=== PATIENT | male | born 1985 | race Caucasian/White ===

== ENCOUNTER 2020-09-22 18:31 | Emergency (ER) | payer OTHER ==
[2020-09-22] MEDS ORDERED: TETANUS/DIPHTHERIA/PERTUSSIS 0.5 ML SYRINGE IM ONE (18:41)
[2020-09-22] MEDS ORDERED: BUFFERED LIDOCAINE 10 ML SYRINGE SUBQ STA (18:41)
--- NOTE | 2020-09-22 18:51 | ED Physician Documentation ---
History of Present Illness - Stated complaint Stated Complaint: RT HAND LAC - Chief complaint Chief Complaint: Laceration - Additonal information Additional information: 35 year old male here with a laceration to the palm ulnar side of right hand sustained when he fell onto glass while breaking down a shed. Pt is right hand dominate. [employer], utd tetanus Review of Systems Constitutional: reports: Reviewed and negative Eyes: reports: Reviewed and negative Ears: reports: Reviewed and negative Nose: reports: Reviewed and negative Throat: reports: Reviewed and negative Skin: reports: Laceration (s) (palm left hand/wrist) PD PAST MEDICAL HISTORY - Present Medications Home Medications: Ambulatory Orders Medication Instructions Recorded Confirmed Dextroamphetamine/Amphetamine 10 mg PO DAILY 09/22/20 09/22/20 [Adderall 10 mg Tablet] Dextroamphetamine/Amphetamine 30 mg PO DAILY 09/22/20 09/22/20 [Adderall 30 mg Tablet] - Allergies Allergies/Adverse Reactions: Allergies Allergy/AdvReac Type Severity Reaction Status Date / Time No Known Drug Allergies Allergy Verified 09/22/20 18:36 PD ED PE EXPANDED - General General: Alert, No acute distress - Extremities Extremities: Left wrist (3 cm laceration palmar side right hand base palm ulnar side. distal CMST preserved. Normal flexion, extenion wrist. Normal gasp of hand) Results - Vitals Vitals: Vital Signs - 24 hr 09/22/20 18:37 Temperature 36.6 C Heart Rate 98 Respiratory 18 Rate Blood Pressure 134/87 H O2 Saturation 100 Oxygen O2 Source Room air Procedures - Laceration (location) right hand/palm Length in cm: 3 Wound type: Linear, Into subcut fat Neurovascular status: Sensory intact, Motor intact, Vascular intact Tendon involvement: Tendon intact Anesthesia: LET Wound preparation: Chlorhexadine, Irrigated copiously NS Skin layer closure: Nylon, Size #-0 - enter number (4), Sutures - enter # (6) Other: Patient tolerated well, No complications, Neurovascular intact, Tetanus U TD PD MEDICAL DECISION MAKING - ED course Complexity details: re-evaluated patient, d/w patient ED course: 35-year-old male presents emergency department with a 3 cm laceration on the palmar side of his right hand ulnar side. This was sustained when he was tearing apart an old shed. Wound was easily closed with 6 sutures. Tetanus is up-to-date. Routine wound care emergent return precautions were discussed. Departure - Departure Disposition: 01 Home, Self Care Clinical Impression: Laceration of palm Qualifiers: Encounter type: initial encounter Laterality: right Qualified Code(s): S61.411A - Laceration without foreign body of right hand, initial encounter Record reviewed to determine appropriate education?: Yes Instructions: ED Laceration Hand Comments: Your sutures should be removed in 8 to 10 days. In 24 hours you may remove the dressing wash gently with warm soap and water, apply any antibiotic ointment and a simple bandage. Your tetanus is up-to-date. Please attempt to keep your wound clean and dry. Do not submerge it in dirty dishwater or bath water. Return to the emergency department if you have any concerns of infection such as redness, fevers milky drainage increased pain.
--- NOTE | 2020-09-22 19:16 | XRAY Report ---
PROCEDURE: Wrist 2 View RT INDICATIONS: laceration; eval for FB TECHNIQUE: 2 views of the wrist were acquired. COMPARISON: None FINDINGS: Bones: No fractures or dislocations. No suspicious bony lesions. Soft tissues: No suspicious soft tissue calcifications. No soft tissue gas. No radiodense foreign b odies. IMPRESSION: No fracture. No osseous lesion. If there are persistent symptoms or continued clinical concern for pa thology, then repeat plain film radiographs (7-10 days) or advanced imaging (CT, MR, bone scan) shoul d be considered for further evaluation. No radiodense foreign body. Reviewed by: Pamela Nicholson MD, PhD on 09/22/2020 7:15 PM PDT Approved by: Pamela Nicholson MD, PhD on 09/22/2020 7:15 PM PDT Station ID: [id number]
[2020-09-22] MEDS ORDERED: BACITRACIN ZINC OINT 1 PACKET TOP STA (19:19)
[2020-09-22 19:35] VITALS: BP 132/81
== END 2020-09-22 19:33 | disposition home or self-care (01) ==
LOC: ED 18:31
DX: S61.411A Laceration without foreign body of right hand, initial encounter (principal); W01.110A Fall on same level from slipping, tripping and stumbling with subsequent striking against sharp glass, initial encounter; Y93.H3 Activity, building and construction; Y92.139 Unspecified place military base as the place of occurrence of the external cause; Y99.1 Military activity
CPT/HCPCS: 12002; 99282; 99283

== ENCOUNTER 2022-11-06 08:41 | Emergency (ER) | payer OTHER ==
[2022-11-06] MEDS ORDERED: SODIUM CHLORIDE 0.9% 1,000 ML IV STA (08:53)
[2022-11-06] MEDS ORDERED: ONDANSETRON 4 MG/2 ML VIAL IVP STA (08:53)
--- OUTSIDE RECORDS SUMMARY | 2022-11-06 09:14 | EXTERNAL MEDICAL SUMMARY RPT | Continuity of Care Document ---
Author Name Unknown Address [address] [place] [address] Phone Organization [place] Address [address] [place] [address] Phone Care Team Providers Care Home Care Consultant Name Role Phone Vanesa Alexander Unavailable Unavailable Medications date description facility 2022-10-16 00:00 Ondansetron [facility] Problems date description facility 2022-10-16 00:00 Atypical chest pain [facility] 2022-10-16 00:00 Nausea and vomiting [facility] 2022-10-16 00:00 Elevated liver enzymes [facility] Procedures date description facility 2022-10-15 00:00 X-ray of chest, single [facility] Results/Labs test date author facility value unit interpretation Result panel 1 (unknown) (no date) (unknown) [facility] (no value) (units unknown) (unknown) Result panel 2 (unknown) (no date) (unknown) [facility] (no value) (units unknown) (unknown) Result panel 3 (unknown) (no date) (unknown) [facility] (no value) (units unknown) (unknown) Result panel 4 (unknown) (no date) (unknown) [facility] (no value) (units unknown) (unknown) Result panel 5 (unknown) (no date) (unknown) [facility] (no value) (units unknown) (unknown) Result panel 6 (unknown) (no date) (unknown) [facility] (no value) (units unknown) (unknown) Result panel 7 (unknown) (no date) (unknown) [facility] (no value) (units unknown) (unknown) Result panel 8 (unknown) (no date) (unknown) [facility] (no value) (units unknown) (unknown) Result panel 9 (unknown) (no date) (unknown) [facility] (no value) (units unknown) (unknown) Result panel 10 (unknown) (no date) (unknown) [facility] (no value) (units unknown) (unknown) Result panel 11 (unknown) (no date) (unknown) [facility] (no value) (units unknown) (unknown) Result panel 12 (unknown) (no date) (unknown) [facility] (no value) (units unknown) (unknown) Result panel 13 (unknown) (no date) (unknown) [facility] (no value) (units unknown) (unknown) Result panel 14 (unknown) (no date) (unknown) [facility] (no value) (units unknown) (unknown) Result panel 15 (unknown) (no date) (unknown) [facility] (no value) (units unknown) (unknown) Result panel 16 (unknown) (no date) (unknown) [facility] (no value) (units unknown) (unknown) Result panel 17 (unknown) (no date) (unknown) [facility] (no value) (units unknown) (unknown) Result panel 18 (unknown) (no date) (unknown) [facility] (no value) (units unknown) (unknown) Result panel 19 (unknown) (no date) (unknown) [facility] (no value) (units unknown) (unknown) Result panel 20 (unknown) (no date) (unknown) [facility] (no value) (units unknown) (unknown) Result panel 21 (unknown) (no date) (unknown) [facility] (no value) (units unknown) (unknown) Result panel 22 (unknown) (no date) (unknown) [facility] (no value) (units unknown) (unknown) Result panel 23 (unknown) (no date) (unknown) [facility] (no value) (units unknown) (unknown) Result panel 24 (unknown) (no date) (unknown) [facility] (no value) (units unknown) (unknown) Result panel 25 (unknown) (no date) (unknown) [facility] (no value) (units unknown) (unknown) Result panel 26 (unknown) (no date) (unknown) [facility] (no value) (units unknown) (unknown) Result panel 27 (unknown) (no date) (unknown) [facility] (no value) (units unknown) (unknown) Result panel 28 (unknown) (no date) (unknown) [facility] (no value) (units unknown) (unknown) Result panel 29 (unknown) (no date) (unknown) [facility] (no value) (units unknown) (unknown) Result panel 30 (unknown) (no date) (unknown) [facility] (no value) (units unknown) (unknown) Result panel 31 (unknown) (no date) (unknown) [facility] (no value) (units unknown) (unknown) Result panel 32 (unknown) (no date) (unknown) [facility] (no value) (units unknown) (unknown) Result panel 33 (unknown) (no date) (unknown) [facility] (no value) (units unknown) (unknown) Result panel 34 (unknown) (no date) (unknown) [facility] (no value) (units unknown) (unknown) Result panel 35 (unknown) (no date) (unknown) [facility] (no value) (units unknown) (unknown) Result panel 36 (unknown) (no date) (unknown) [facility] (no value) (units unknown) (unknown) Result panel 37 (unknown) (no date) (unknown) (unknown) (no value) (units unknown) (unknown) (unknown) (no date) (unknown) (unknown) #: [id number] (units unknown) (unknown) (unknown) (no date) (unknown) (unknown) 10/15/22 (units unknown) (unknown) (unknown) (no date) (unknown) (unknown) 1. No acute cardiopulmonary disease. (units unknown) (unknown) (unknown) (no date) (unknown) (unknown) [address] [place] [address] (units unknown) (unknown) (unknown) (no date) (unknown) (unknown) Accession Number: [id number] (units unknown) (unknown) (unknown) (no date) (unknown) (unknown) Age/Sex: 37 / M Date of Service: (units unknown) (unknown) (unknown) (no date) (unknown) (unknown) [place] [address] (units unknown) (unknown) (unknown) (no date) (unknown) (unknown) Approved by: Tavon Becker M.D. on 10/16/2022 at 0:14 (units unknown) (unknown) (unknown) (no date) (unknown) (unknown) Bones and chest wall: No suspicious bony lesions. Overlying soft tissues (units unknown) (unknown) (unknown) (no date) (unknown) (unknown) COMPARISON: None. (units unknown) (unknown) (unknown) (no date) (unknown) (unknown) : 1985 Acct:[id number] (units unknown) (unknown) (unknown) (no date) (unknown) (unknown) Dictated by: Tavon Becker M.D. on 10/16/2022 at 0:14 (units unknown) (unknown) (unknown) (no date) (unknown) (unknown) FINDINGS: (units unknown) (unknown) (unknown) (no date) (unknown) (unknown) IMPRESSION: (units unknown) (unknown) (unknown) (no date) (unknown) (unknown) INDICATIONS: chest pain (units unknown) (unknown) (unknown) (no date) (unknown) (unknown) [facility] (units unknown) (unknown) (unknown) (no date) (unknown) (unknown) Loc: ED (units unknown) (unknown) (unknown) (no date) (unknown) (unknown) Lungs and pleura: Lungs are clear. No pleural effusions or pneumothorax. (units unknown) (unknown) (unknown) (no date) (unknown) (unknown) Mediastinum: Mediastinal contours appear normal. Heart size is normal. (units unknown) (unknown) (unknown) (no date) (unknown) (unknown) Ordering Provider: Vanesa Alexander MD (units unknown) (unknown) (unknown) (no date) (unknown) (unknown) PROCEDURE: XR CHEST 1V (units unknown) (unknown) (unknown) (no date) (unknown) (unknown) Patient: Shamar Briones MR (units unknown) (unknown) (unknown) (no date) (unknown) (unknown) Procedure: XR chest 1V (units unknown) (unknown) (unknown) (no date) (unknown) (unknown) Signed (units unknown) (unknown) (unknown) (no date) (unknown) (unknown) Surgical changes and devices: None. (units unknown) (unknown) (unknown) (no date) (unknown) (unknown) TECHNIQUE: One view of the chest was acquired. (units unknown) (unknown) (unknown) (no date) (unknown) (unknown) XRay Report (units unknown) (unknown) (unknown) (no date) (unknown) (unknown) appear (units unknown) (unknown) (unknown) (no date) (unknown) (unknown) unremarkable. (units unknown) (unknown) Result panel 38 (unknown) (no date) (unknown) (unknown) 0 /ul (unknown) (unknown) (no date) (unknown) (unknown) 0.7 % (unknown) (unknown) (no date) (unknown) (unknown) 100 /ul (unknown) (unknown) (no date) (unknown) (unknown) 1000 /ul (unknown) (unknown) (no date) (unknown) (unknown) 14.0 % (unknown) (unknown) (no date) (unknown) (unknown) 15.3 % (unknown) (unknown) (no date) (unknown) (unknown) 16.8 g/dl (unknown) (unknown) (no date) (unknown) (unknown) 2.2 % (unknown) (unknown) (no date) (unknown) (unknown) 272 x10 3/ul (unknown) (unknown) (no date) (unknown) (unknown) 31.9 pg (unknown) (unknown) (no date) (unknown) (unknown) 35.1 % (unknown) (unknown) (no date) (unknown) (unknown) 47.7 % (unknown) (unknown) (no date) (unknown) (unknown) 4900 /ul (unknown) (unknown) (no date) (unknown) (unknown) 5.26 x10 6/ul (unknown) (unknown) (no date) (unknown) (unknown) 6.7 x10 3/ul (unknown) (unknown) (no date) (unknown) (unknown) 600 /ul (unknown) (unknown) (no date) (unknown) (unknown) 73.2 % (unknown) (unknown) (no date) (unknown) (unknown) 8.6 % (unknown) (unknown) (no date) (unknown) (unknown) 90.7 fl (unknown) Result panel 39 (unknown) (no date) (unknown) (unknown) 142 u/l (unknown) Result panel 40 (unknown) (no date) (unknown) (unknown) 1.0 (units unknown) (unknown) (unknown) (no date) (unknown) (unknown) 11.1 seconds (unknown) (unknown) (no date) (unknown) (unknown) 30 seconds (unknown) (unknown) (no date) (unknown) (unknown) 30 seconds (unknown) Result panel 41 (unknown) (no date) (unknown) (unknown) > 60 ml/min (unknown) (unknown) (no date) (unknown) (unknown) > 60 ml/min (unknown) (unknown) (no date) (unknown) (unknown) 0.6 mg/dl (unknown) (unknown) (no date) (unknown) (unknown) 1.05 mg/dl (unknown) (unknown) (no date) (unknown) (unknown) 1.5 (units unknown) (unknown) (unknown) (no date) (unknown) (unknown) 10 mg/dl (unknown) (unknown) (no date) (unknown) (unknown) 100 mmol/l (unknown) (unknown) (no date) (unknown) (unknown) 117 iu/l (unknown) (unknown) (no date) (unknown) (unknown) 129 mg/dl (unknown) (unknown) (no date) (unknown) (unknown) 129 mg/dl (unknown) (unknown) (no date) (unknown) (unknown) 138 mmol/l (unknown) (unknown) (no date) (unknown) (unknown) 146 iu/l (unknown) (unknown) (no date) (unknown) (unknown) 2.1 mg/dl (unknown) (unknown) (no date) (unknown) (unknown) 23 mmol/l (unknown) (unknown) (no date) (unknown) (unknown) 271 u/l (unknown) (unknown) (no date) (unknown) (unknown) 3.6 g/dl (unknown) (unknown) (no date) (unknown) (unknown) 3.9 mmol/l (unknown) (unknown) (no date) (unknown) (unknown) 5.3 g/dl (unknown) (unknown) (no date) (unknown) (unknown) 60 u/l (unknown) (unknown) (no date) (unknown) (unknown) 8.9 g/dl (unknown) (unknown) (no date) (unknown) (unknown) 9.4 mg/dl (unknown) (unknown) (no date) (unknown) (unknown) 9.5 (units unknown) (unknown) Result panel 42 (unknown) (no date) (unknown) (unknown) > 60 ml/min (unknown) (unknown) (no date) (unknown) (unknown) > 60 ml/min (unknown) (unknown) (no date) (unknown) (unknown) < 0.012 ng/ml (unknown) (unknown) (no date) (unknown) (unknown) < 0.012 ng/ml (unknown) (unknown) (no date) (unknown) (unknown) * (units unknown) (unknown) (unknown) (no date) (unknown) (unknown) * (units unknown) (unknown) (unknown) (no date) (unknown) (unknown) 0-1/HPF (units unknown) (unknown) (unknown) (no date) (unknown) (unknown) 0.6 mg/dl (unknown) (unknown) (no date) (unknown) (unknown) 1.05 mg/dl (unknown) (unknown) (no date) (unknown) (unknown) 1.5 (units unknown) (unknown) (unknown) (no date) (unknown) (unknown) 10 mg/dl (unknown) (unknown) (no date) (unknown) (unknown) 100 mmol/l (unknown) (unknown) (no date) (unknown) (unknown) 117 iu/l (unknown) (unknown) (no date) (unknown) (unknown) 129 mg/dl (unknown) (unknown) (no date) (unknown) (unknown) 129 mg/dl (unknown) (unknown) (no date) (unknown) (unknown) 138 mmol/l (unknown) (unknown) (no date) (unknown) (unknown) 146 iu/l (unknown) (unknown) (no date) (unknown) (unknown) 2.1 mg/dl (unknown) (unknown) (no date) (unknown) (unknown) 23 mmol/l (unknown) (unknown) (no date) (unknown) (unknown) 271 u/l (unknown) (unknown) (no date) (unknown) (unknown) 3.6 g/dl (unknown) (unknown) (no date) (unknown) (unknown) 3.9 mmol/l (unknown) (unknown) (no date) (unknown) (unknown) 30-100/LPF (units unknown) (unknown) (unknown) (no date) (unknown) (unknown) 5.3 g/dl (unknown) (unknown) (no date) (unknown) (unknown) 60 u/l (unknown) (unknown) (no date) (unknown) (unknown) 8.9 g/dl (unknown) (unknown) (no date) (unknown) (unknown) 9.4 mg/dl (unknown) (unknown) (no date) (unknown) (unknown) 9.5 (units unknown) (unknown) (unknown) (no date) (unknown) (unknown) None Seen (units unknown) (unknown) (unknown) (no date) (unknown) (unknown) None Seen (units unknown) (unknown) (unknown) (no date) (unknown) (unknown) None Seen (units unknown) (unknown) Result panel 43 (unknown) (no date) (unknown) (unknown) > 60 ml/min (unknown) (unknown) (no date) (unknown) (unknown) > 60 ml/min (unknown) (unknown) (no date) (unknown) (unknown) < 0.012 ng/ml (unknown) (unknown) (no date) (unknown) (unknown) < 0.012 ng/ml (unknown) (unknown) (no date) (unknown) (unknown) 0.3 % (unknown) (unknown) (no date) (unknown) (unknown) 0.6 mg/dl (unknown) (unknown) (no date) (unknown) (unknown) 0.81 ng/ml (unknown) (unknown) (no date) (unknown) (unknown) 1.05 mg/dl (unknown) (unknown) (no date) (unknown) (unknown) 1.5 (units unknown) (unknown) (unknown) (no date) (unknown) (unknown) 10 mg/dl (unknown) (unknown) (no date) (unknown) (unknown) 100 mmol/l (unknown) (unknown) (no date) (unknown) (unknown) 117 iu/l (unknown) (unknown) (no date) (unknown) (unknown) 129 mg/dl (unknown) (unknown) (no date) (unknown) (unknown) 129 mg/dl (unknown) (unknown) (no date) (unknown) (unknown) 138 mmol/l (unknown) (unknown) (no date) (unknown) (unknown) 146 iu/l (unknown) (unknown) (no date) (unknown) (unknown) 2.1 mg/dl (unknown) (unknown) (no date) (unknown) (unknown) 23 mmol/l (unknown) (unknown) (no date) (unknown) (unknown) 271 u/l (unknown) (unknown) (no date) (unknown) (unknown) 3.6 g/dl (unknown) (unknown) (no date) (unknown) (unknown) 3.9 mmol/l (unknown) (unknown) (no date) (unknown) (unknown) 5.3 g/dl (unknown) (unknown) (no date) (unknown) (unknown) 60 u/l (unknown) (unknown) (no date) (unknown) (unknown) 8.9 g/dl (unknown) (unknown) (no date) (unknown) (unknown) 9.4 mg/dl (unknown) (unknown) (no date) (unknown) (unknown) 9.5 (units unknown) (unknown) Result panel 44 (unknown) (no date) (unknown) (unknown) (no value) (units unknown) (unknown) (unknown) (no date) (unknown) (unknown) 00:00 10/16/22 (units unknown) (unknown) (unknown) (no date) (unknown) (unknown) 00:30 10/16/22 (units unknown) (unknown) (unknown) (no date) (unknown) (unknown) 00:30 (units unknown) (unknown) (unknown) (no date) (unknown) (unknown) 01:00 10/16/22 (units unknown) (unknown) (unknown) (no date) (unknown) (unknown) 01:00 (units unknown) (unknown) (unknown) (no date) (unknown) (unknown) 01:10/16/22 (units unknown) (unknown) (unknown) (no date) (unknown) (unknown) 02:00 10/16/22 (units unknown) (unknown) (unknown) (no date) (unknown) (unknown) 02:00 (units unknown) (unknown) (unknown) (no date) (unknown) (unknown) 02:10/16/22 (units unknown) (unknown) (unknown) (no date) (unknown) (unknown) 02:30 (units unknown) (unknown) (unknown) (no date) (unknown) (unknown) 03:00 10/16/22 (units unknown) (unknown) (unknown) (no date) (unknown) (unknown) 03:00 (units unknown) (unknown) (unknown) (no date) (unknown) (unknown) 10/15/22 10/15/22 10/15/22 Range/Units (units unknown) (unknown) (unknown) (no date) (unknown) (unknown) 10/15/22 10/15/22 Range/Units (units unknown) (unknown) (unknown) (no date) (unknown) (unknown) 10/15/22 22:52 (units unknown) (unknown) (unknown) (no date) (unknown) (unknown) 10/15/22 23:00 (units unknown) (unknown) (unknown) (no date) (unknown) (unknown) 10/15/22 (units unknown) (unknown) (unknown) (no date) (unknown) (unknown) 10/16/22 (units unknown) (unknown) (unknown) (no date) (unknown) (unknown) 22:48 10/15/22 (units unknown) (unknown) (unknown) (no date) (unknown) (unknown) 23:00 23:00 23:00 (units unknown) (unknown) (unknown) (no date) (unknown) (unknown) 23:00 23:00 (units unknown) (unknown) (unknown) (no date) (unknown) (unknown) 23:32 10/15/22 (units unknown) (unknown) (unknown) (no date) (unknown) (unknown) 23:33 (units unknown) (unknown) (unknown) (no date) (unknown) (unknown) : [id number] (units unknown) (unknown) (unknown) (no date) (unknown) (unknown) ALT (<50) IU/L (units unknown) (unknown) (unknown) (no date) (unknown) (unknown) ALT 146 H (<50) IU/L (units unknown) (unknown) (unknown) (no date) (unknown) (unknown) APTT (26-36) SECONDS (units unknown) (unknown) (unknown) (no date) (unknown) (unknown) APTT 30 (26-36) SECONDS (units unknown) (unknown) (unknown) (no date) (unknown) (unknown) AST (17-59) IU/L (units unknown) (unknown) (unknown) (no date) (unknown) (unknown) AST 117 H (17-59) IU/L (units unknown) (unknown) (unknown) (no date) (unknown) (unknown) Age/Sex: 37 / M (units unknown) (unknown) (unknown) (no date) (unknown) (unknown) Albumin (3.5-5.0) g/dL (units unknown) (unknown) (unknown) (no date) (unknown) (unknown) Albumin 5.3 H (3.5-5.0) g/dL (units unknown) (unknown) (unknown) (no date) (unknown) (unknown) Albumin/Globulin Ratio (1.0-2.8) (units unknown) (unknown) (unknown) (no date) (unknown) (unknown) Albumin/Globulin Ratio 1.5 (1.0-2.8) (units unknown) (unknown) (unknown) (no date) (unknown) (unknown) Alkaline Phosphatase (38-126) U/L (units unknown) (unknown) (unknown) (no date) (unknown) (unknown) Alkaline Phosphatase 60 (38-126) U/L (units unknown) (unknown) (unknown) (no date) (unknown) (unknown) BUN (9-20) mg/dL (units unknown) (unknown) (unknown) (no date) (unknown) (unknown) BUN 10 (9-20) mg/dL (units unknown) (unknown) (unknown) (no date) (unknown) (unknown) BUN/Creatinine Ratio (6-22) (units unknown) (unknown) (unknown) (no date) (unknown) (unknown) BUN/Creatinine Ratio 9.5 (6-22) (units unknown) (unknown) (unknown) (no date) (unknown) (unknown) Baso # (Auto) (0-100) /uL (units unknown) (unknown) (unknown) (no date) (unknown) (unknown) Baso # (Auto) 0 (0-100) /uL (units unknown) (unknown) (unknown) (no date) (unknown) (unknown) Baso % (Auto) (0-2) % (units unknown) (unknown) (unknown) (no date) (unknown) (unknown) Baso % (Auto) 0.7 (0-2) % (units unknown) (unknown) (unknown) (no date) (unknown) (unknown) Bedside Urine Bilirubin - Negative (units unknown) (unknown) (unknown) (no date) (unknown) (unknown) Bedside Urine Glucose Negative (units unknown) (unknown) (unknown) (no date) (unknown) (unknown) Bedside Urine Ketone - Negative (units unknown) (unknown) (unknown) (no date) (unknown) (unknown) Bedside Urine Leukocytes - Negative (units unknown) (unknown) (unknown) (no date) (unknown) (unknown) Bedside Urine Nitrite - Negative (units unknown) (unknown) (unknown) (no date) (unknown) (unknown) Bedside Urine Occult Blood +/ (units unknown) (unknown) (unknown) (no date) (unknown) (unknown) Bedside Urine Protein ++ 100 (units unknown) (unknown) (unknown) (no date) (unknown) (unknown) Bedside Urine Urobilinogen - Negative (units unknown) (unknown) (unknown) (no date) (unknown) (unknown) Bedside Urine pH 5.5 (units unknown) (unknown) (unknown) (no date) (unknown) (unknown) Blood Pressure 116/73 (units unknown) (unknown) (unknown) (no date) (unknown) (unknown) Blood Pressure 118/80 (units unknown) (unknown) (unknown) (no date) (unknown) (unknown) Blood Pressure 124/77 (units unknown) (unknown) (unknown) (no date) (unknown) (unknown) Blood Pressure 128/79 124/80 (units unknown) (unknown) (unknown) (no date) (unknown) (unknown) Blood Pressure 128/82 121/74 (units unknown) (unknown) (unknown) (no date) (unknown) (unknown) Blood Pressure 143/99 H 10/15/22 22:48 (units unknown) (unknown) (unknown) (no date) (unknown) (unknown) Blood Pressure 143/99 H 138/90 (units unknown) (unknown) (unknown) (no date) (unknown) (unknown) CK-MB (CK-2) (<2.37) ng/mL (units unknown) (unknown) (unknown) (no date) (unknown) (unknown) CK-MB (CK-2) 0.81 (<2.37) ng/mL (units unknown) (unknown) (unknown) (no date) (unknown) (unknown) CK-MB (CK-2) Rel Index (1.5-5.0) % (units unknown) (unknown) (unknown) (no date) (unknown) (unknown) CK-MB (CK-2) Rel Index 0.3 L (1.5-5.0) % (units unknown) (unknown) (unknown) (no date) (unknown) (unknown) Calcium (8.4-10.2) mg/dL (units unknown) (unknown) (unknown) (no date) (unknown) (unknown) Calcium 9.4 (8.4-10.2) mg/dL (units unknown) (unknown) (unknown) (no date) (unknown) (unknown) Carbon Dioxide (22-32) mmol/L (units unknown) (unknown) (unknown) (no date) (unknown) (unknown) Carbon Dioxide 23 (22-32) mmol/L (units unknown) (unknown) (unknown) (no date) (unknown) (unknown) Chief Complaint: Chest Pain (units unknown) (unknown) (unknown) (no date) (unknown) (unknown) Chloride (98-107) mmol/L (units unknown) (unknown) (unknown) (no date) (unknown) (unknown) Chloride 100 (98-107) mmol/L (units unknown) (unknown) (unknown) (no date) (unknown) (unknown) Complete Blood Count AUTO DIFF Stat (units unknown) (unknown) (unknown) (no date) (unknown) (unknown) Comprehensive Metabolic Panel Stat (units unknown) (unknown) (unknown) (no date) (unknown) (unknown) Course (units unknown) (unknown) (unknown) (no date) (unknown) (unknown) Creatinine (0.66-1.25) mg/dL (units unknown) (unknown) (unknown) (no date) (unknown) (unknown) Creatinine 1.05 (0.66-1.25) mg/dL (units unknown) (unknown) (unknown) (no date) (unknown) (unknown) : 1985 Acct:[id number] (units unknown) (unknown) (unknown) (no date) (unknown) (unknown) Date of Service: 10/15/22 (units unknown) (unknown) (unknown) (no date) (unknown) (unknown) Departure (units unknown) (unknown) (unknown) (no date) (unknown) (unknown) Discharge Plan (units unknown) (unknown) (unknown) (no date) (unknown) (unknown) ED Orders (units unknown) (unknown) (unknown) (no date) (unknown) (unknown) EKG-12 Lead Stat (units unknown) (unknown) (unknown) (no date) (unknown) (unknown) ER Physician: Vanesa Alexander MD (units unknown) (unknown) (unknown) (no date) (unknown) (unknown) Emergency Report (units unknown) (unknown) (unknown) (no date) (unknown) (unknown) Eos # (Auto) (0-450) /uL (units unknown) (unknown) (unknown) (no date) (unknown) (unknown) Eos # (Auto) 100 (0-450) /uL (units unknown) (unknown) (unknown) (no date) (unknown) (unknown) Eos % (Auto) (2-4) % (units unknown) (unknown) (unknown) (no date) (unknown) (unknown) Eos % (Auto) 2.2 (2-4) % (units unknown) (unknown) (unknown) (no date) (unknown) (unknown) Esterase (units unknown) (unknown) (unknown) (no date) (unknown) (unknown) Estimated GFR > 60 (>60) mL/min (units unknown) (unknown) (unknown) (no date) (unknown) (unknown) Estimated GFR (>60) mL/min (units unknown) (unknown) (unknown) (no date) (unknown) (unknown) Exam (units unknown) (unknown) (unknown) (no date) (unknown) (unknown) General (units unknown) (unknown) (unknown) (no date) (unknown) (unknown) Globulin (1.7-4.1) g/dL (units unknown) (unknown) (unknown) (no date) (unknown) (unknown) Globulin 3.6 (1.7-4.1) g/dL (units unknown) (unknown) (unknown) (no date) (unknown) (unknown) Glucose (70-100) mg/dL (units unknown) (unknown) (unknown) (no date) (unknown) (unknown) Glucose 129 H (70-100) mg/dL (units unknown) (unknown) (unknown) (no date) (unknown) (unknown) HPI - Chest Pain (units unknown) (unknown) (unknown) (no date) (unknown) (unknown) Hct (41-53) % (units unknown) (unknown) (unknown) (no date) (unknown) (unknown) Hct 47.7 (41-53) % (units unknown) (unknown) (unknown) (no date) (unknown) (unknown) Hgb (13.5-17.5) g/dL (units unknown) (unknown) (unknown) (no date) (unknown) (unknown) Hgb 16.8 (13.5-17.5) g/dL (units unknown) (unknown) (unknown) (no date) (unknown) (unknown) Hyaline Casts (None) (units unknown) (unknown) (unknown) (no date) (unknown) (unknown) Hyaline Casts 30-100/lpf (None) (units unknown) (unknown) (unknown) (no date) (unknown) (unknown) INR (0.9-1.3) (units unknown) (unknown) (unknown) (no date) (unknown) (unknown) INR 1.0 (0.9-1.3) (units unknown) (unknown) (unknown) (no date) (unknown) (unknown) Initial Vital Signs (units unknown) (unknown) (unknown) (no date) (unknown) (unknown) Initial Vital Signs: (units unknown) (unknown) (unknown) (no date) (unknown) (unknown) [address] [address] (units unknown) (unknown) (unknown) (no date) (unknown) (unknown) Lab Data (units unknown) (unknown) (unknown) (no date) (unknown) (unknown) Lab Results (units unknown) (unknown) (unknown) (no date) (unknown) (unknown) Labs: (units unknown) (unknown) (unknown) (no date) (unknown) (unknown) Limitations: no limitations (units unknown) (unknown) (unknown) (no date) (unknown) (unknown) Lipase 142 (units unknown) (unknown) (unknown) (no date) (unknown) (unknown) Lipase Cancelled (units unknown) (unknown) (unknown) (no date) (unknown) (unknown) Lipase Stat (units unknown) (unknown) (unknown) (no date) (unknown) (unknown) Lymph # (Auto) ([id number]) /uL (units unknown) (unknown) (unknown) (no date) (unknown) (unknown) Lymph # (Auto) 1000 L (0687-0186) /uL (units unknown) (unknown) (unknown) (no date) (unknown) (unknown) Lymph % (Auto) (25-40) % (units unknown) (unknown) (unknown) (no date) (unknown) (unknown) Lymph % (Auto) 15.3 L (25-40) % (units unknown) (unknown) (unknown) (no date) (unknown) (unknown) MCH (26-34) PG (units unknown) (unknown) (unknown) (no date) (unknown) (unknown) MCH 31.9 (26-34) PG (units unknown) (unknown) (unknown) (no date) (unknown) (unknown) MCHC (30-36) % (units unknown) (unknown) (unknown) (no date) (unknown) (unknown) MCHC 35.1 (30-36) % (units unknown) (unknown) (unknown) (no date) (unknown) (unknown) MCV (80-100) fL (units unknown) (unknown) (unknown) (no date) (unknown) (unknown) MCV 90.7 (80-100) fL (units unknown) (unknown) (unknown) (no date) (unknown) (unknown) MDM - Chest Pain (units unknown) (unknown) (unknown) (no date) (unknown) (unknown) Magnesium (1.6-2.3) mg/dL (units unknown) (unknown) (unknown) (no date) (unknown) (unknown) Magnesium 2.1 (1.6-2.3) mg/dL (units unknown) (unknown) (unknown) (no date) (unknown) (unknown) Magnesium Stat (units unknown) (unknown) (unknown) (no date) (unknown) (unknown) Micro UA Comment * (units unknown) (unknown) (unknown) (no date) (unknown) (unknown) Micro UA Comment (units unknown) (unknown) (unknown) (no date) (unknown) (unknown) Mode of arrival: Family Vehicle (units unknown) (unknown) (unknown) (no date) (unknown) (unknown) [place] # (Auto) (0-900) /uL (units unknown) (unknown) (unknown) (no date) (unknown) (unknown) [place] # (Auto) 600 (0-900) /uL (units unknown) (unknown) (unknown) (no date) (unknown) (unknown) [place] % (Auto) (3-14) % (units unknown) (unknown) (unknown) (no date) (unknown) (unknown) [place] % (Auto) 8.6 (3-14) % (units unknown) (unknown) (unknown) (no date) (unknown) (unknown) Neut # (Auto) (7419-3992) /uL (units unknown) (unknown) (unknown) (no date) (unknown) (unknown) Neut # (Auto) 4900 (1755-1086) /uL (units unknown) (unknown) (unknown) (no date) (unknown) (unknown) Neut % (Auto) (50-75) % (units unknown) (unknown) (unknown) (no date) (unknown) (unknown) Neut % (Auto) 73.2 (50-75) % (units unknown) (unknown) (unknown) (no date) (unknown) (unknown) Ordered: (units unknown) (unknown) (unknown) (no date) (unknown) (unknown) Orders (units unknown) (unknown) (unknown) (no date) (unknown) (unknown) Oxygen Delivery Method Room Air 10/15/22 22:48 (units unknown) (unknown) (unknown) (no date) (unknown) (unknown) Oxygen Delivery Method Room Air (units unknown) (unknown) (unknown) (no date) (unknown) (unknown) Oxygen Delivery Method (units unknown) (unknown) (unknown) (no date) (unknown) (unknown) PT (10.1-12.7) SECONDS (units unknown) (unknown) (unknown) (no date) (unknown) (unknown) PT 11.1 (10.1-12.7) SECONDS (units unknown) (unknown) (unknown) (no date) (unknown) (unknown) PTT Partial Thromboplastin Agus Stat (units unknown) (unknown) (unknown) (no date) (unknown) (unknown) Patient: Shamar Briones MR# (units unknown) (unknown) (unknown) (no date) (unknown) (unknown) Plt Count (150-400) X103/uL (units unknown) (unknown) (unknown) (no date) (unknown) (unknown) Plt Count 272 (150-400) X103/uL (units unknown) (unknown) (unknown) (no date) (unknown) (unknown) Potassium (3.4-5.1) mmol/L (units unknown) (unknown) (unknown) (no date) (unknown) (unknown) Potassium 3.9 (3.4-5.1) mmol/L (units unknown) (unknown) (unknown) (no date) (unknown) (unknown) Prothrombin Time INR Stat (units unknown) (unknown) (unknown) (no date) (unknown) (unknown) Provider,Candelaria HAYWOOD [Primary Care Provider] (units unknown) (unknown) (unknown) (no date) (unknown) (unknown) Pulse Oximetry 95 (units unknown) (unknown) (unknown) (no date) (unknown) (unknown) Pulse Oximetry 96 96 (units unknown) (unknown) (unknown) (no date) (unknown) (unknown) Pulse Oximetry 97 (units unknown) (unknown) (unknown) (no date) (unknown) (unknown) Pulse Oximetry 99 10/15/22 22:48 (units unknown) (unknown) (unknown) (no date) (unknown) (unknown) Pulse Oximetry 99 99 (units unknown) (unknown) (unknown) (no date) (unknown) (unknown) Pulse Rate 101 H (units unknown) (unknown) (unknown) (no date) (unknown) (unknown) Pulse Rate 105 H 103 H (units unknown) (unknown) (unknown) (no date) (unknown) (unknown) Pulse Rate 105 H 107 H (units unknown) (unknown) (unknown) (no date) (unknown) (unknown) Pulse Rate 107 H (units unknown) (unknown) (unknown) (no date) (unknown) (unknown) Pulse Rate 108 H (units unknown) (unknown) (unknown) (no date) (unknown) (unknown) Pulse Rate 128 H 10/15/22 22:48 (units unknown) (unknown) (unknown) (no date) (unknown) (unknown) Pulse Rate 128 H 110 H (units unknown) (unknown) (unknown) (no date) (unknown) (unknown) RBC (4.5-5.9) X106/uL (units unknown) (unknown) (unknown) (no date) (unknown) (unknown) RBC 5.26 (4.5-5.9) X106/uL (units unknown) (unknown) (unknown) (no date) (unknown) (unknown) RDW (11.6-14.8) % (units unknown) (unknown) (unknown) (no date) (unknown) (unknown) RDW 14.0 (11.6-14.8) % (units unknown) (unknown) (unknown) (no date) (unknown) (unknown) Referrals: (units unknown) (unknown) (unknown) (no date) (unknown) (unknown) Respiratory Rate 10 L (units unknown) (unknown) (unknown) (no date) (unknown) (unknown) Respiratory Rate 15 (units unknown) (unknown) (unknown) (no date) (unknown) (unknown) Respiratory Rate 16 (units unknown) (unknown) (unknown) (no date) (unknown) (unknown) Respiratory Rate 18 17 (units unknown) (unknown) (unknown) (no date) (unknown) (unknown) Respiratory Rate 20 16 (units unknown) (unknown) (unknown) (no date) (unknown) (unknown) Respiratory Rate 22 10/15/22 22:48 (units unknown) (unknown) (unknown) (no date) (unknown) (unknown) Respiratory Rate 22 (units unknown) (unknown) (unknown) (no date) (unknown) (unknown) Signed By: (units unknown) (unknown) (unknown) (no date) (unknown) (unknown) Sodium (137-145) mmol/L (units unknown) (unknown) (unknown) (no date) (unknown) (unknown) Sodium 138 (137-145) mmol/L (units unknown) (unknown) (unknown) (no date) (unknown) (unknown) Source: patient (units unknown) (unknown) (unknown) (no date) (unknown) (unknown) Stated Complaint: Chest discomfort, vomiting, abd pain x1 week (units unknown) (unknown) (unknown) (no date) (unknown) (unknown) Temperature 97.9 F 10/15/22 22:48 (units unknown) (unknown) (unknown) (no date) (unknown) (unknown) Temperature 97.9 F (units unknown) (unknown) (unknown) (no date) (unknown) (unknown) Temperature (units unknown) (unknown) (unknown) (no date) (unknown) (unknown) Time Seen by Provider: 10/16/22 03:34 (units unknown) (unknown) (unknown) (no date) (unknown) (unknown) Total Bilirubin (0.2-1.3) mg/dL (units unknown) (unknown) (unknown) (no date) (unknown) (unknown) Total Bilirubin 0.6 (0.2-1.3) mg/dL (units unknown) (unknown) (unknown) (no date) (unknown) (unknown) Total Creatine Kinase (55-170) U/L (units unknown) (unknown) (unknown) (no date) (unknown) (unknown) Total Creatine Kinase 271 H (55-170) U/L (units unknown) (unknown) (unknown) (no date) (unknown) (unknown) Total Protein (6.3-8.2) g/dL (units unknown) (unknown) (unknown) (no date) (unknown) (unknown) Total Protein 8.9 H (6.3-8.2) g/dL (units unknown) (unknown) (unknown) (no date) (unknown) (unknown) Troponin + CK Cardiac Panel Stat (units unknown) (unknown) (unknown) (no date) (unknown) (unknown) Troponin I < 0.012 (0.01-0.034) ng/mL (units unknown) (unknown) (unknown) (no date) (unknown) (unknown) Troponin I (0.01-0.034) ng/mL (units unknown) (unknown) (unknown) (no date) (unknown) (unknown) Urine Bacteria (None) (units unknown) (unknown) (unknown) (no date) (unknown) (unknown) Urine Bacteria None seen (None) (units unknown) (unknown) (unknown) (no date) (unknown) (unknown) Urine Culture Stat (units unknown) (unknown) (unknown) (no date) (unknown) (unknown) Urine Dip (units unknown) (unknown) (unknown) (no date) (unknown) (unknown) Urine Microscopic Stat (units unknown) (unknown) (unknown) (no date) (unknown) (unknown) Urine RBC (0-5/HPF) (units unknown) (unknown) (unknown) (no date) (unknown) (unknown) Urine RBC None seen (0-5/HPF) (units unknown) (unknown) (unknown) (no date) (unknown) (unknown) Urine Specific [place] 1.020 (units unknown) (unknown) (unknown) (no date) (unknown) (unknown) Urine WBC (0-5/HPF) (units unknown) (unknown) (unknown) (no date) (unknown) (unknown) Urine WBC 0-1/hpf (0-5/HPF) (units unknown) (unknown) (unknown) (no date) (unknown) (unknown) Vital Signs - 8 hr (units unknown) (unknown) (unknown) (no date) (unknown) (unknown) Vital Signs (units unknown) (unknown) (unknown) (no date) (unknown) (unknown) Vital signs: (units unknown) (unknown) (unknown) (no date) (unknown) (unknown) WBC (4.5-11.0) X103/uL (units unknown) (unknown) (unknown) (no date) (unknown) (unknown) WBC 6.7 (4.5-11.0) X103/uL (units unknown) (unknown) (unknown) (no date) (unknown) (unknown) XR chest 1V Stat (units unknown) (unknown) (unknown) (no date) (unknown) (unknown) [Embedded Image Not Available] (units unknown) (unknown) Result panel 45 (unknown) (no date) (unknown) (unknown) 493 ng/ml (unknown) (unknown) (no date) (unknown) (unknown) 493 ng/ml (unknown) Result panel 46 (unknown) (no date) (unknown) (unknown) (no value) (units unknown) (unknown) (unknown) (no date) (unknown) (unknown) 00:30 10/16/22 (units unknown) (unknown) (unknown) (no date) (unknown) (unknown) 01:00 10/16/22 (units unknown) (unknown) (unknown) (no date) (unknown) (unknown) 01:00 (units unknown) (unknown) (unknown) (no date) (unknown) (unknown) 01:30 10/16/22 (units unknown) (unknown) (unknown) (no date) (unknown) (unknown) 01:30 (units unknown) (unknown) (unknown) (no date) (unknown) (unknown) 02:00 10/16/22 (units unknown) (unknown) (unknown) (no date) (unknown) (unknown) 02:30 10/16/22 (units unknown) (unknown) (unknown) (no date) (unknown) (unknown) 02:30 (units unknown) (unknown) (unknown) (no date) (unknown) (unknown) 03:00 10/16/22 (units unknown) (unknown) (unknown) (no date) (unknown) (unknown) 03:00 (units unknown) (unknown) (unknown) (no date) (unknown) (unknown) 03:30 10/16/22 (units unknown) (unknown) (unknown) (no date) (unknown) (unknown) 04:00 10/16/22 (units unknown) (unknown) (unknown) (no date) (unknown) (unknown) 04:00 (units unknown) (unknown) (unknown) (no date) (unknown) (unknown) 04:30 10/16/22 (units unknown) (unknown) (unknown) (no date) (unknown) (unknown) 04:30 (units unknown) (unknown) (unknown) (no date) (unknown) (unknown) 10/15/22 10/15/22 10/15/22 Range/Units (units unknown) (unknown) (unknown) (no date) (unknown) (unknown) 10/15/22 10/15/22 10/16/22 Range/Units (units unknown) (unknown) (unknown) (no date) (unknown) (unknown) 10/15/22 23:00 (units unknown) (unknown) (unknown) (no date) (unknown) (unknown) 10/16/22 07:35 (units unknown) (unknown) (unknown) (no date) (unknown) (unknown) 10/16/22 (units unknown) (unknown) (unknown) (no date) (unknown) (unknown) 05:00 10/16/22 (units unknown) (unknown) (unknown) (no date) (unknown) (unknown) 05:30 10/16/22 (units unknown) (unknown) (unknown) (no date) (unknown) (unknown) 05:30 (units unknown) (unknown) (unknown) (no date) (unknown) (unknown) 06:00 10/16/22 (units unknown) (unknown) (unknown) (no date) (unknown) (unknown) 06:00 (units unknown) (unknown) (unknown) (no date) (unknown) (unknown) 06:30 10/16/22 (units unknown) (unknown) (unknown) (no date) (unknown) (unknown) 06:59 (units unknown) (unknown) (unknown) (no date) (unknown) (unknown) 07:00 10/16/22 (units unknown) (unknown) (unknown) (no date) (unknown) (unknown) 07:01 (units unknown) (unknown) (unknown) (no date) (unknown) (unknown) 23:00 23:00 07:35 (units unknown) (unknown) (unknown) (no date) (unknown) (unknown) 23:00 23:00 23:00 (units unknown) (unknown) (unknown) (no date) (unknown) (unknown) : [id number] (units unknown) (unknown) (unknown) (no date) (unknown) (unknown) ALT (<50) IU/L (units unknown) (unknown) (unknown) (no date) (unknown) (unknown) ALT 146 H (<50) IU/L (units unknown) (unknown) (unknown) (no date) (unknown) (unknown) APTT (26-36) SECONDS (units unknown) (unknown) (unknown) (no date) (unknown) (unknown) APTT 30 (26-36) SECONDS (units unknown) (unknown) (unknown) (no date) (unknown) (unknown) AST (17-59) IU/L (units unknown) (unknown) (unknown) (no date) (unknown) (unknown) AST 117 H (17-59) IU/L (units unknown) (unknown) (unknown) (no date) (unknown) (unknown) Abdomen: Soft, minor tenderness in the epigastrium without rebound or guarding (units unknown) (unknown) (unknown) (no date) (unknown) (unknown) Age/Sex: 37 / M (units unknown) (unknown) (unknown) (no date) (unknown) (unknown) Al Hydrox/Mg Hydrox/Simethicone (Mag Hydrox/Alum/Simeth 30 Ml Udc) 30 ml PO NOW (units unknown) (unknown) (unknown) (no date) (unknown) (unknown) Al Hydrox/Mg Hydrox/Simethicone 20 ml/ Lidocaine HCl 15 ml 0 ml PO NOW ONE (units unknown) (unknown) (unknown) (no date) (unknown) (unknown) Albumin (3.5-5.0) g/dL (units unknown) (unknown) (unknown) (no date) (unknown) (unknown) Albumin 5.3 H (3.5-5.0) g/dL (units unknown) (unknown) (unknown) (no date) (unknown) (unknown) Albumin/Globulin Ratio (1.0-2.8) (units unknown) (unknown) (unknown) (no date) (unknown) (unknown) Albumin/Globulin Ratio 1.5 (1.0-2.8) (units unknown) (unknown) (unknown) (no date) (unknown) (unknown) Alkaline Phosphatase (38-126) U/L (units unknown) (unknown) (unknown) (no date) (unknown) (unknown) Alkaline Phosphatase 60 (38-126) U/L (units unknown) (unknown) (unknown) (no date) (unknown) (unknown) BUN (9-20) mg/dL (units unknown) (unknown) (unknown) (no date) (unknown) (unknown) BUN 10 (9-20) mg/dL (units unknown) (unknown) (unknown) (no date) (unknown) (unknown) BUN/Creatinine Ratio (6-22) (units unknown) (unknown) (unknown) (no date) (unknown) (unknown) BUN/Creatinine Ratio 9.5 (6-22) (units unknown) (unknown) (unknown) (no date) (unknown) (unknown) Baso # (Auto) (0-100) /uL (units unknown) (unknown) (unknown) (no date) (unknown) (unknown) Baso # (Auto) 0 (0-100) /uL (units unknown) (unknown) (unknown) (no date) (unknown) (unknown) Baso % (Auto) (0-2) % (units unknown) (unknown) (unknown) (no date) (unknown) (unknown) Baso % (Auto) 0.7 (0-2) % (units unknown) (unknown) (unknown) (no date) (unknown) (unknown) Bedside Urine Bilirubin - Negative (units unknown) (unknown) (unknown) (no date) (unknown) (unknown) Bedside Urine Glucose Negative (units unknown) (unknown) (unknown) (no date) (unknown) (unknown) Bedside Urine Ketone - Negative (units unknown) (unknown) (unknown) (no date) (unknown) (unknown) Bedside Urine Leukocytes - Negative (units unknown) (unknown) (unknown) (no date) (unknown) (unknown) Bedside Urine Nitrite - Negative (units unknown) (unknown) (unknown) (no date) (unknown) (unknown) Bedside Urine Occult Blood +/ (units unknown) (unknown) (unknown) (no date) (unknown) (unknown) Bedside Urine Protein ++ 100 (units unknown) (unknown) (unknown) (no date) (unknown) (unknown) Bedside Urine Urobilinogen - Negative (units unknown) (unknown) (unknown) (no date) (unknown) (unknown) Bedside Urine pH 5.5 (units unknown) (unknown) (unknown) (no date) (unknown) (unknown) Blood Pressure 108/72 (units unknown) (unknown) (unknown) (no date) (unknown) (unknown) Blood Pressure 110/76 (units unknown) (unknown) (unknown) (no date) (unknown) (unknown) Blood Pressure 116/73 (units unknown) (unknown) (unknown) (no date) (unknown) (unknown) Blood Pressure 117/72 116/80 (units unknown) (unknown) (unknown) (no date) (unknown) (unknown) Blood Pressure 117/80 118/78 (units unknown) (unknown) (unknown) (no date) (unknown) (unknown) Blood Pressure 118/83 (units unknown) (unknown) (unknown) (no date) (unknown) (unknown) Blood Pressure 121/74 118/80 (units unknown) (unknown) (unknown) (no date) (unknown) (unknown) Blood Pressure 124/80 124/77 (units unknown) (unknown) (unknown) (no date) (unknown) (unknown) Blood Pressure 128/79 (units unknown) (unknown) (unknown) (no date) (unknown) (unknown) Blood Pressure 129/90 (units unknown) (unknown) (unknown) (no date) (unknown) (unknown) Blood Pressure 143/99 H 10/15/22 22:48 (units unknown) (unknown) (unknown) (no date) (unknown) (unknown) CBC is unremarkable (units unknown) (unknown) (unknown) (no date) (unknown) (unknown) CC: Chest pain after episode of emesis (units unknown) (unknown) (unknown) (no date) (unknown) (unknown) CK-MB (CK-2) (<2.37) ng/mL (units unknown) (unknown) (unknown) (no date) (unknown) (unknown) CK-MB (CK-2) 0.81 (<2.37) ng/mL (units unknown) (unknown) (unknown) (no date) (unknown) (unknown) CK-MB (CK-2) Rel Index (1.5-5.0) % (units unknown) (unknown) (unknown) (no date) (unknown) (unknown) CK-MB (CK-2) Rel Index 0.3 L (1.5-5.0) % (units unknown) (unknown) (unknown) (no date) (unknown) (unknown) Calcium (8.4-10.2) mg/dL (units unknown) (unknown) (unknown) (no date) (unknown) (unknown) Calcium 9.4 (8.4-10.2) mg/dL (units unknown) (unknown) (unknown) (no date) (unknown) (unknown) Carbon Dioxide (22-32) mmol/L (units unknown) (unknown) (unknown) (no date) (unknown) (unknown) Carbon Dioxide 23 (22-32) mmol/L (units unknown) (unknown) (unknown) (no date) (unknown) (unknown) Cardiac: Regular rate and rhythm no murmurs no bruits (units unknown) (unknown) (unknown) (no date) (unknown) (unknown) Chemistries show mildly elevated AST and ALT with normal alk-phos and normal (units unknown) (unknown) (unknown) (no date) (unknown) (unknown) Chest: Some tenderness along the costochondral borders, mild tenderness with (units unknown) (unknown) (unknown) (no date) (unknown) (unknown) Chief Complaint: Chest Pain (units unknown) (unknown) (unknown) (no date) (unknown) (unknown) Chloride (98-107) mmol/L (units unknown) (unknown) (unknown) (no date) (unknown) (unknown) Chloride 100 (98-107) mmol/L (units unknown) (unknown) (unknown) (no date) (unknown) (unknown) Complicating co-morbidities: Otherwise healthy (units unknown) (unknown) (unknown) (no date) (unknown) (unknown) Consultations: (units unknown) (unknown) (unknown) (no date) (unknown) (unknown) Course (units unknown) (unknown) (unknown) (no date) (unknown) (unknown) Creatinine (0.66-1.25) mg/dL (units unknown) (unknown) (unknown) (no date) (unknown) (unknown) Creatinine 1.05 (0.66-1.25) mg/dL (units unknown) (unknown) (unknown) (no date) (unknown) (unknown) Creatinine was slightly elevated at 271 (units unknown) (unknown) (unknown) (no date) (unknown) (unknown) D Dimer Stat (units unknown) (unknown) (unknown) (no date) (unknown) (unknown) D-Dimer (<500) ng/ml (units unknown) (unknown) (unknown) (no date) (unknown) (unknown) D-Dimer 493 (<500) ng/ml (units unknown) (unknown) (unknown) (no date) (unknown) (unknown) : 1985 Acct:[id number] (units unknown) (unknown) (unknown) (no date) (unknown) (unknown) Data collected from: patient, (units unknown) (unknown) (unknown) (no date) (unknown) (unknown) Date of Service: 10/15/22 (units unknown) (unknown) (unknown) (no date) (unknown) (unknown) Departure (units unknown) (unknown) (unknown) (no date) (unknown) (unknown) Differential considered: Gastritis, esophagitis, acute coronary syndrome, (units unknown) (unknown) (unknown) (no date) (unknown) (unknown) Discharge Plan (units unknown) (unknown) (unknown) (no date) (unknown) (unknown) Discontinued Medications (units unknown) (unknown) (unknown) (no date) (unknown) (unknown) Discussion: (units unknown) (unknown) (unknown) (no date) (unknown) (unknown) Documented By: NR (units unknown) (unknown) (unknown) (no date) (unknown) (unknown) ED Orders (units unknown) (unknown) (unknown) (no date) (unknown) (unknown) ER Physician: Vanesa Alexander MD (units unknown) (unknown) (unknown) (no date) (unknown) (unknown) Emergency Report (units unknown) (unknown) (unknown) (no date) (unknown) (unknown) Eos # (Auto) (0-450) /uL (units unknown) (unknown) (unknown) (no date) (unknown) (unknown) Eos # (Auto) 100 (0-450) /uL (units unknown) (unknown) (unknown) (no date) (unknown) (unknown) Eos % (Auto) (2-4) % (units unknown) (unknown) (unknown) (no date) (unknown) (unknown) Eos % (Auto) 2.2 (2-4) % (units unknown) (unknown) (unknown) (no date) (unknown) (unknown) Esterase (units unknown) (unknown) (unknown) (no date) (unknown) (unknown) Estimated GFR > 60 (>60) mL/min (units unknown) (unknown) (unknown) (no date) (unknown) (unknown) Estimated GFR (>60) mL/min (units unknown) (unknown) (unknown) (no date) (unknown) (unknown) Exam documented above, pertinent findings include: Minor tenderness with (units unknown) (unknown) (unknown) (no date) (unknown) (unknown) Exam (units unknown) (unknown) (unknown) (no date) (unknown) (unknown) Extremities: No trauma, well perfused (units unknown) (unknown) (unknown) (no date) (unknown) (unknown) Full and symmetrical air movement (units unknown) (unknown) (unknown) (no date) (unknown) (unknown) General (units unknown) (unknown) (unknown) (no date) (unknown) (unknown) General: Healthy appearing, in no acute distress. Able to give a complete and (units unknown) (unknown) (unknown) (no date) (unknown) (unknown) Globulin (1.7-4.1) g/dL (units unknown) (unknown) (unknown) (no date) (unknown) (unknown) Globulin 3.6 (1.7-4.1) g/dL (units unknown) (unknown) (unknown) (no date) (unknown) (unknown) Glucose (70-100) mg/dL (units unknown) (unknown) (unknown) (no date) (unknown) (unknown) Glucose 129 H (70-100) mg/dL (units unknown) (unknown) (unknown) (no date) (unknown) (unknown) HEENT: Moist mucous membranes, normal sclera with reactive pupils, (units unknown) (unknown) (unknown) (no date) (unknown) (unknown) HPI - Chest Pain (units unknown) (unknown) (unknown) (no date) (unknown) (unknown) HPI narrative: (units unknown) (unknown) (unknown) (no date) (unknown) (unknown) Hct (41-53) % (units unknown) (unknown) (unknown) (no date) (unknown) (unknown) Hct 47.7 (41-53) % (units unknown) (unknown) (unknown) (no date) (unknown) (unknown) He is now complaining of pain into the left chest that is worse with deep (units unknown) (unknown) (unknown) (no date) (unknown) (unknown) Hgb (13.5-17.5) g/dL (units unknown) (unknown) (unknown) (no date) (unknown) (unknown) Hgb 16.8 (13.5-17.5) g/dL (units unknown) (unknown) (unknown) (no date) (unknown) (unknown) History of Present Illness (units unknown) (unknown) (unknown) (no date) (unknown) (unknown) Hyaline Casts (None) (units unknown) (unknown) (unknown) (no date) (unknown) (unknown) Hyaline Casts 30-100/lpf (None) (units unknown) (unknown) (unknown) (no date) (unknown) (unknown) INR (0.9-1.3) (units unknown) (unknown) (unknown) (no date) (unknown) (unknown) INR 1.0 (0.9-1.3) (units unknown) (unknown) (unknown) (no date) (unknown) (unknown) Imaging studies independently reviewed: Chest x-ray is unremarkable (units unknown) (unknown) (unknown) (no date) (unknown) (unknown) Independently reviewed EKG shows sinus tachycardia at a rate of 123, no acute (units unknown) (unknown) (unknown) (no date) (unknown) (unknown) Initial Vital Signs (units unknown) (unknown) (unknown) (no date) (unknown) (unknown) Initial Vital Signs: (units unknown) (unknown) (unknown) (no date) (unknown) (unknown) [address] [address] (units unknown) (unknown) (unknown) (no date) (unknown) (unknown) Lab Data (units unknown) (unknown) (unknown) (no date) (unknown) (unknown) Lab Results (units unknown) (unknown) (unknown) (no date) (unknown) (unknown) Lab Test results independently reviewed as above. Pertinent findings: (units unknown) (unknown) (unknown) (no date) (unknown) (unknown) Labs: (units unknown) (unknown) (unknown) (no date) (unknown) (unknown) Last Admin: 10/16/22 07:36 Dose: 1,000 mls/hr (units unknown) (unknown) (unknown) (no date) (unknown) (unknown) Last Admin: 10/16/22 07:36 Dose: 4 mg (units unknown) (unknown) (unknown) (no date) (unknown) (unknown) Last Admin: 10/16/22 07:36 Dose: 40 mg (units unknown) (unknown) (unknown) (no date) (unknown) (unknown) Last Admin: 10/16/22 08:18 Dose: Not Given (units unknown) (unknown) (unknown) (no date) (unknown) (unknown) Limitations: no limitations (units unknown) (unknown) (unknown) (no date) (unknown) (unknown) Lipase 142 (units unknown) (unknown) (unknown) (no date) (unknown) (unknown) Lipase Cancelled (units unknown) (unknown) (unknown) (no date) (unknown) (unknown) Lymph # (Auto) ([id number]) /uL (units unknown) (unknown) (unknown) (no date) (unknown) (unknown) Lymph # (Auto) 1000 L (2181-5680) /uL (units unknown) (unknown) (unknown) (no date) (unknown) (unknown) Lymph % (Auto) (25-40) % (units unknown) (unknown) (unknown) (no date) (unknown) (unknown) Lymph % (Auto) 15.3 L (25-40) % (units unknown) (unknown) (unknown) (no date) (unknown) (unknown) MCH (26-34) PG (units unknown) (unknown) (unknown) (no date) (unknown) (unknown) MCH 31.9 (26-34) PG (units unknown) (unknown) (unknown) (no date) (unknown) (unknown) MCHC (30-36) % (units unknown) (unknown) (unknown) (no date) (unknown) (unknown) MCHC 35.1 (30-36) % (units unknown) (unknown) (unknown) (no date) (unknown) (unknown) MCV (80-100) fL (units unknown) (unknown) (unknown) (no date) (unknown) (unknown) MCV 90.7 (80-100) fL (units unknown) (unknown) (unknown) (no date) (unknown) (unknown) MDM - Chest Pain (units unknown) (unknown) (unknown) (no date) (unknown) (unknown) MDM Narrative (units unknown) (unknown) (unknown) (no date) (unknown) (unknown) Magnesium (1.6-2.3) mg/dL (units unknown) (unknown) (unknown) (no date) (unknown) (unknown) Magnesium 2.1 (1.6-2.3) mg/dL (units unknown) (unknown) (unknown) (no date) (unknown) (unknown) Medical decision making narrative: (units unknown) (unknown) (unknown) (no date) (unknown) (unknown) Micro UA Comment * (units unknown) (unknown) (unknown) (no date) (unknown) (unknown) Micro UA Comment (units unknown) (unknown) (unknown) (no date) (unknown) (unknown) Mode of arrival: Family Vehicle (units unknown) (unknown) (unknown) (no date) (unknown) (unknown) [place] # (Auto) (0-900) /uL (units unknown) (unknown) (unknown) (no date) (unknown) (unknown) [place] # (Auto) 600 (0-900) /uL (units unknown) (unknown) (unknown) (no date) (unknown) (unknown) [place] % (Auto) (3-14) % (units unknown) (unknown) (unknown) (no date) (unknown) (unknown) [place] % (Auto) 8.6 (3-14) % (units unknown) (unknown) (unknown) (no date) (unknown) (unknown) Narrative: (units unknown) (unknown) (unknown) (no date) (unknown) (unknown) Neck: No JVD, supple (units unknown) (unknown) (unknown) (no date) (unknown) (unknown) Neurologic: Grossly neurologically intact with no obvious asymmetries or (units unknown) (unknown) (unknown) (no date) (unknown) (unknown) Neut # (Auto) (7010-9295) /uL (units unknown) (unknown) (unknown) (no date) (unknown) (unknown) Neut # (Auto) 4900 (5284-0003) /uL (units unknown) (unknown) (unknown) (no date) (unknown) (unknown) Neut % (Auto) (50-75) % (units unknown) (unknown) (unknown) (no date) (unknown) (unknown) Neut % (Auto) 73.2 (50-75) % (units unknown) (unknown) (unknown) (no date) (unknown) (unknown) No evidence of acute surgical abdomen. (units unknown) (unknown) (unknown) (no date) (unknown) (unknown) ONE (units unknown) (unknown) (unknown) (no date) (unknown) (unknown) Ondansetron HCl (Ondansetron 4 Mg/2 Ml Inj) 4 mg IV NOW ONE (units unknown) (unknown) (unknown) (no date) (unknown) (unknown) Ordered: (units unknown) (unknown) (unknown) (no date) (unknown) (unknown) Orders (units unknown) (unknown) (unknown) (no date) (unknown) (unknown) Otherwise healthy 37-year-old gentleman who presents with chest pain through the (units unknown) (unknown) (unknown) (no date) (unknown) (unknown) Oxygen Delivery Method Room Air 10/15/22 22:48 (units unknown) (unknown) (unknown) (no date) (unknown) (unknown) PT (10.1-12.7) SECONDS (units unknown) (unknown) (unknown) (no date) (unknown) (unknown) PT 11.1 (10.1-12.7) SECONDS (units unknown) (unknown) (unknown) (no date) (unknown) (unknown) Pantoprazole Sodium (Pantoprazole 40 Mg Vial) 40 mg IV NOW ONE (units unknown) (unknown) (unknown) (no date) (unknown) (unknown) Patient: Shamar Briones MR# (units unknown) (unknown) (unknown) (no date) (unknown) (unknown) Plt Count (150-400) X103/uL (units unknown) (unknown) (unknown) (no date) (unknown) (unknown) Plt Count 272 (150-400) X103/uL (units unknown) (unknown) (unknown) (no date) (unknown) (unknown) Potassium (3.4-5.1) mmol/L (units unknown) (unknown) (unknown) (no date) (unknown) (unknown) Potassium 3.9 (3.4-5.1) mmol/L (units unknown) (unknown) (unknown) (no date) (unknown) (unknown) Provider,Candelaria HAYWOOD [Primary Care Provider] (units unknown) (unknown) (unknown) (no date) (unknown) (unknown) Psych: Cooperative, appropriate insight and affect (units unknown) (unknown) (unknown) (no date) (unknown) (unknown) Pulse Oximetry 95 97 (units unknown) (unknown) (unknown) (no date) (unknown) (unknown) Pulse Oximetry 95 (units unknown) (unknown) (unknown) (no date) (unknown) (unknown) Pulse Oximetry 96 95 (units unknown) (unknown) (unknown) (no date) (unknown) (unknown) Pulse Oximetry 96 97 (units unknown) (unknown) (unknown) (no date) (unknown) (unknown) Pulse Oximetry 96 (units unknown) (unknown) (unknown) (no date) (unknown) (unknown) Pulse Oximetry 99 10/15/22 22:48 (units unknown) (unknown) (unknown) (no date) (unknown) (unknown) Pulse Rate 100 H 104 H (units unknown) (unknown) (unknown) (no date) (unknown) (unknown) Pulse Rate 103 H 101 H (units unknown) (unknown) (unknown) (no date) (unknown) (unknown) Pulse Rate 105 H (units unknown) (unknown) (unknown) (no date) (unknown) (unknown) Pulse Rate 107 H 107 H (units unknown) (unknown) (unknown) (no date) (unknown) (unknown) Pulse Rate 128 H 10/15/22 22:48 (units unknown) (unknown) (unknown) (no date) (unknown) (unknown) Pulse Rate 94 H (units unknown) (unknown) (unknown) (no date) (unknown) (unknown) Pulse Rate 96 H 95 H (units unknown) (unknown) (unknown) (no date) (unknown) (unknown) Pulse Rate 97 H 98 H (units unknown) (unknown) (unknown) (no date) (unknown) (unknown) Pulse Rate 99 H (units unknown) (unknown) (unknown) (no date) (unknown) (unknown) RBC (4.5-5.9) X106/uL (units unknown) (unknown) (unknown) (no date) (unknown) (unknown) RBC 5.26 (4.5-5.9) X106/uL (units unknown) (unknown) (unknown) (no date) (unknown) (unknown) RDW (11.6-14.8) % (units unknown) (unknown) (unknown) (no date) (unknown) (unknown) RDW 14.0 (11.6-14.8) % (units unknown) (unknown) (unknown) (no date) (unknown) (unknown) Re-evaluations: (units unknown) (unknown) (unknown) (no date) (unknown) (unknown) Referrals: (units unknown) (unknown) (unknown) (no date) (unknown) (unknown) Remainder of complete review of systems is otherwise unremarkable except for (units unknown) (unknown) (unknown) (no date) (unknown) (unknown) Respiratory Rate 12 13 (units unknown) (unknown) (unknown) (no date) (unknown) (unknown) Respiratory Rate 14 15 (units unknown) (unknown) (unknown) (no date) (unknown) (unknown) Respiratory Rate 14 (units unknown) (unknown) (unknown) (no date) (unknown) (unknown) Respiratory Rate 15 17 (units unknown) (unknown) (unknown) (no date) (unknown) (unknown) Respiratory Rate 16 15 (units unknown) (unknown) (unknown) (no date) (unknown) (unknown) Respiratory Rate 17 10 L (units unknown) (unknown) (unknown) (no date) (unknown) (unknown) Respiratory Rate 18 (units unknown) (unknown) (unknown) (no date) (unknown) (unknown) Respiratory Rate 20 (units unknown) (unknown) (unknown) (no date) (unknown) (unknown) Respiratory Rate 22 10/15/22 22:48 (units unknown) (unknown) (unknown) (no date) (unknown) (unknown) Respiratory Rate 8 L (units unknown) (unknown) (unknown) (no date) (unknown) (unknown) Respiratory: Lungs are clear to auscultation, no wheezing no rales no rhonchi. (units unknown) (unknown) (unknown) (no date) (unknown) (unknown) Review of Systems (units unknown) (unknown) (unknown) (no date) (unknown) (unknown) Signed By: (units unknown) (unknown) (unknown) (no date) (unknown) (unknown) Skin: Warm and dry, no rashes (units unknown) (unknown) (unknown) (no date) (unknown) (unknown) Sodium (137-145) mmol/L (units unknown) (unknown) (unknown) (no date) (unknown) (unknown) Sodium 138 (137-145) mmol/L (units unknown) (unknown) (unknown) (no date) (unknown) (unknown) Sodium Chloride (Normal Saline 0.9%) 1,000 mls @ 1,000 mls/hr IV BOLUS ONE (units unknown) (unknown) (unknown) (no date) (unknown) (unknown) Source: patient (units unknown) (unknown) (unknown) (no date) (unknown) (unknown) Stated Complaint: Chest discomfort, vomiting, abd pain x1 week (units unknown) (unknown) (unknown) (no date) (unknown) (unknown) Stop: 10/16/22 06:50 (units unknown) (unknown) (unknown) (no date) (unknown) (unknown) Stop: 10/16/22 07:48 (units unknown) (unknown) (unknown) (no date) (unknown) (unknown) Stop: 10/16/22 08:20 (units unknown) (unknown) (unknown) (no date) (unknown) (unknown) Temperature 97.9 F 10/15/22 22:48 (units unknown) (unknown) (unknown) (no date) (unknown) (unknown) Time Seen by Provider: 10/16/22 03:34 (units unknown) (unknown) (unknown) (no date) (unknown) (unknown) Total Bilirubin (0.2-1.3) mg/dL (units unknown) (unknown) (unknown) (no date) (unknown) (unknown) Total Bilirubin 0.6 (0.2-1.3) mg/dL (units unknown) (unknown) (unknown) (no date) (unknown) (unknown) Total Creatine Kinase (55-170) U/L (units unknown) (unknown) (unknown) (no date) (unknown) (unknown) Total Creatine Kinase 271 H (55-170) U/L (units unknown) (unknown) (unknown) (no date) (unknown) (unknown) Total Protein (6.3-8.2) g/dL (units unknown) (unknown) (unknown) (no date) (unknown) (unknown) Total Protein 8.9 H (6.3-8.2) g/dL (units unknown) (unknown) (unknown) (no date) (unknown) (unknown) Treatments: (units unknown) (unknown) (unknown) (no date) (unknown) (unknown) Troponin I < 0.012 (0.01-0.034) ng/mL (units unknown) (unknown) (unknown) (no date) (unknown) (unknown) Troponin I (0.01-0.034) ng/mL (units unknown) (unknown) (unknown) (no date) (unknown) (unknown) Troponin is undetectable and CK-MB fraction is low. (units unknown) (unknown) (unknown) (no date) (unknown) (unknown) Urine Bacteria (None) (units unknown) (unknown) (unknown) (no date) (unknown) (unknown) Urine Bacteria None seen (None) (units unknown) (unknown) (unknown) (no date) (unknown) (unknown) Urine Dip (units unknown) (unknown) (unknown) (no date) (unknown) (unknown) Urine RBC (0-5/HPF) (units unknown) (unknown) (unknown) (no date) (unknown) (unknown) Urine RBC None seen (0-5/HPF) (units unknown) (unknown) (unknown) (no date) (unknown) (unknown) Urine Specific [place] 1.020 (units unknown) (unknown) (unknown) (no date) (unknown) (unknown) Urine WBC (0-5/HPF) (units unknown) (unknown) (unknown) (no date) (unknown) (unknown) Urine WBC 0-1/hpf (0-5/HPF) (units unknown) (unknown) (unknown) (no date) (unknown) (unknown) Vital Signs - 8 hr (units unknown) (unknown) (unknown) (no date) (unknown) (unknown) Vital Signs (units unknown) (unknown) (unknown) (no date) (unknown) (unknown) Vital signs: (units unknown) (unknown) (unknown) (no date) (unknown) (unknown) WBC (4.5-11.0) X103/uL (units unknown) (unknown) (unknown) (no date) (unknown) (unknown) WBC 6.7 (4.5-11.0) X103/uL (units unknown) (unknown) (unknown) (no date) (unknown) (unknown) [Embedded Image Not Available] (units unknown) (unknown) (unknown) (no date) (unknown) (unknown) abnormalities (units unknown) (unknown) (unknown) (no date) (unknown) (unknown) bilirubin. Renal function is appropriate. (units unknown) (unknown) (unknown) (no date) (unknown) (unknown) breathing and with movement. Symptoms have been ongoing for the last 48 hours (units unknown) (unknown) (unknown) (no date) (unknown) (unknown) coherent history. Well-nourished well-developed (units unknown) (unknown) (unknown) (no date) (unknown) (unknown) epigastrium and upper middle of his chest worse after eating and after emesis. (units unknown) (unknown) (unknown) (no date) (unknown) (unknown) good bowel tones, no flank pain (units unknown) (unknown) (unknown) (no date) (unknown) (unknown) he is increasingly concerned above. He describes no orthopnea, dyspnea, (units unknown) (unknown) (unknown) (no date) (unknown) (unknown) headaches, fevers, cough, diarrhea, lower extremity edema. (units unknown) (unknown) (unknown) (no date) (unknown) (unknown) ischemic changes. Normal axis. (units unknown) (unknown) (unknown) (no date) (unknown) (unknown) lateral compression of the ribs. No skin changes. (units unknown) (unknown) (unknown) (no date) (unknown) (unknown) palpation along the sternal borders and with lateral compression of the chest. (units unknown) (unknown) (unknown) (no date) (unknown) (unknown) pancreatitis, cholecystitis, costochondritis, musculoskeletal pain (units unknown) (unknown) (unknown) (no date) (unknown) (unknown) that included in the HPI. (units unknown) (unknown) Result panel 47 (unknown) (no date) (unknown) (unknown) (no value) (units unknown) (unknown) (unknown) (no date) (unknown) (unknown) <Electronically signed by Vanesa Alexander MD> (units unknown) (unknown) (unknown) (no date) (unknown) (unknown) 00:30 10/16/22 (units unknown) (unknown) (unknown) (no date) (unknown) (unknown) 01:00 10/16/22 (units unknown) (unknown) (unknown) (no date) (unknown) (unknown) 01:00 (units unknown) (unknown) (unknown) (no date) (unknown) (unknown) 01:30 10/16/22 (units unknown) (unknown) (unknown) (no date) (unknown) (unknown) 01:30 (units unknown) (unknown) (unknown) (no date) (unknown) (unknown) 02:00 10/16/22 (units unknown) (unknown) (unknown) (no date) (unknown) (unknown) 02:30 10/16/22 (units unknown) (unknown) (unknown) (no date) (unknown) (unknown) 02:30 (units unknown) (unknown) (unknown) (no date) (unknown) (unknown) 03:00 10/16/22 (units unknown) (unknown) (unknown) (no date) (unknown) (unknown) 03:00 (units unknown) (unknown) (unknown) (no date) (unknown) (unknown) 03:30 10/16/22 (units unknown) (unknown) (unknown) (no date) (unknown) (unknown) 04:00 10/16/22 (units unknown) (unknown) (unknown) (no date) (unknown) (unknown) 04:00 (units unknown) (unknown) (unknown) (no date) (unknown) (unknown) 04:30 10/16/22 (units unknown) (unknown) (unknown) (no date) (unknown) (unknown) 04:30 (units unknown) (unknown) (unknown) (no date) (unknown) (unknown) 10/15/22 10/15/22 10/15/22 Range/Units (units unknown) (unknown) (unknown) (no date) (unknown) (unknown) 10/15/22 10/15/22 10/16/22 Range/Units (units unknown) (unknown) (unknown) (no date) (unknown) (unknown) 10/15/22 23:00 (units unknown) (unknown) (unknown) (no date) (unknown) (unknown) 10/16/22 07:35 (units unknown) (unknown) (unknown) (no date) (unknown) (unknown) 10/16/22 0841 (units unknown) (unknown) (unknown) (no date) (unknown) (unknown) 10/16/22 (units unknown) (unknown) (unknown) (no date) (unknown) (unknown) 05:00 10/16/22 (units unknown) (unknown) (unknown) (no date) (unknown) (unknown) 05:30 10/16/22 (units unknown) (unknown) (unknown) (no date) (unknown) (unknown) 05:30 (units unknown) (unknown) (unknown) (no date) (unknown) (unknown) 06:00 10/16/22 (units unknown) (unknown) (unknown) (no date) (unknown) (unknown) 06:00 (units unknown) (unknown) (unknown) (no date) (unknown) (unknown) 06:30 10/16/22 (units unknown) (unknown) (unknown) (no date) (unknown) (unknown) 06:59 (units unknown) (unknown) (unknown) (no date) (unknown) (unknown) 07:00 10/16/22 (units unknown) (unknown) (unknown) (no date) (unknown) (unknown) 07:01 (units unknown) (unknown) (unknown) (no date) (unknown) (unknown) 23:00 23:00 07:35 (units unknown) (unknown) (unknown) (no date) (unknown) (unknown) 23:00 23:00 23:00 (units unknown) (unknown) (unknown) (no date) (unknown) (unknown) 4 mg PO Q8H PRN (Reason: nausea and vomiting) Qty: 14 0RF (units unknown) (unknown) (unknown) (no date) (unknown) (unknown) : [id number] (units unknown) (unknown) (unknown) (no date) (unknown) (unknown) ALT (<50) IU/L (units unknown) (unknown) (unknown) (no date) (unknown) (unknown) ALT 146 H (<50) IU/L (units unknown) (unknown) (unknown) (no date) (unknown) (unknown) APTT (26-36) SECONDS (units unknown) (unknown) (unknown) (no date) (unknown) (unknown) APTT 30 (26-36) SECONDS (units unknown) (unknown) (unknown) (no date) (unknown) (unknown) AST (17-59) IU/L (units unknown) (unknown) (unknown) (no date) (unknown) (unknown) AST 117 H (17-59) IU/L (units unknown) (unknown) (unknown) (no date) (unknown) (unknown) Abdomen: Soft, minor tenderness in the epigastrium without rebound or guarding (units unknown) (unknown) (unknown) (no date) (unknown) (unknown) Activity Restrictions/Additi onal Instructions: (units unknown) (unknown) (unknown) (no date) (unknown) (unknown) Age/Sex: 37 / M (units unknown) (unknown) (unknown) (no date) (unknown) (unknown) Al Hydrox/Mg Hydrox/Simethicone (Mag Hydrox/Alum/Simeth 30 Ml Udc) 30 ml PO NOW (units unknown) (unknown) (unknown) (no date) (unknown) (unknown) Al Hydrox/Mg Hydrox/Simethicone 20 ml/ Lidocaine HCl 15 ml 0 ml PO NOW ONE (units unknown) (unknown) (unknown) (no date) (unknown) (unknown) Albumin (3.5-5.0) g/dL (units unknown) (unknown) (unknown) (no date) (unknown) (unknown) Albumin 5.3 H (3.5-5.0) g/dL (units unknown) (unknown) (unknown) (no date) (unknown) (unknown) Albumin/Globulin Ratio (1.0-2.8) (units unknown) (unknown) (unknown) (no date) (unknown) (unknown) Albumin/Globulin Ratio 1.5 (1.0-2.8) (units unknown) (unknown) (unknown) (no date) (unknown) (unknown) Alkaline Phosphatase (38-126) U/L (units unknown) (unknown) (unknown) (no date) (unknown) (unknown) Alkaline Phosphatase 60 (38-126) U/L (units unknown) (unknown) (unknown) (no date) (unknown) (unknown) Atypical chest pain, Elevated liver enzymes (units unknown) (unknown) (unknown) (no date) (unknown) (unknown) BUN (9-20) mg/dL (units unknown) (unknown) (unknown) (no date) (unknown) (unknown) BUN 10 (9-20) mg/dL (units unknown) (unknown) (unknown) (no date) (unknown) (unknown) BUN/Creatinine Ratio (6-22) (units unknown) (unknown) (unknown) (no date) (unknown) (unknown) BUN/Creatinine Ratio 9.5 (6-22) (units unknown) (unknown) (unknown) (no date) (unknown) (unknown) Baso # (Auto) (0-100) /uL (units unknown) (unknown) (unknown) (no date) (unknown) (unknown) Baso # (Auto) 0 (0-100) /uL (units unknown) (unknown) (unknown) (no date) (unknown) (unknown) Baso % (Auto) (0-2) % (units unknown) (unknown) (unknown) (no date) (unknown) (unknown) Baso % (Auto) 0.7 (0-2) % (units unknown) (unknown) (unknown) (no date) (unknown) (unknown) Bedside Urine Bilirubin - Negative (units unknown) (unknown) (unknown) (no date) (unknown) (unknown) Bedside Urine Glucose Negative (units unknown) (unknown) (unknown) (no date) (unknown) (unknown) Bedside Urine Ketone - Negative (units unknown) (unknown) (unknown) (no date) (unknown) (unknown) Bedside Urine Leukocytes - Negative (units unknown) (unknown) (unknown) (no date) (unknown) (unknown) Bedside Urine Nitrite - Negative (units unknown) (unknown) (unknown) (no date) (unknown) (unknown) Bedside Urine Occult Blood +/ (units unknown) (unknown) (unknown) (no date) (unknown) (unknown) Bedside Urine Protein ++ 100 (units unknown) (unknown) (unknown) (no date) (unknown) (unknown) Bedside Urine Urobilinogen - Negative (units unknown) (unknown) (unknown) (no date) (unknown) (unknown) Bedside Urine pH 5.5 (units unknown) (unknown) (unknown) (no date) (unknown) (unknown) Blood Pressure 108/72 (units unknown) (unknown) (unknown) (no date) (unknown) (unknown) Blood Pressure 110/76 (units unknown) (unknown) (unknown) (no date) (unknown) (unknown) Blood Pressure 116/73 (units unknown) (unknown) (unknown) (no date) (unknown) (unknown) Blood Pressure 117/72 116/80 (units unknown) (unknown) (unknown) (no date) (unknown) (unknown) Blood Pressure 117/80 118/78 (units unknown) (unknown) (unknown) (no date) (unknown) (unknown) Blood Pressure 118/83 (units unknown) (unknown) (unknown) (no date) (unknown) (unknown) Blood Pressure 121/74 118/80 (units unknown) (unknown) (unknown) (no date) (unknown) (unknown) Blood Pressure 124/80 124/77 (units unknown) (unknown) (unknown) (no date) (unknown) (unknown) Blood Pressure 128/79 (units unknown) (unknown) (unknown) (no date) (unknown) (unknown) Blood Pressure 129/90 (units unknown) (unknown) (unknown) (no date) (unknown) (unknown) Blood Pressure 143/99 H 10/15/22 22:48 (units unknown) (unknown) (unknown) (no date) (unknown) (unknown) CBC is unremarkable (units unknown) (unknown) (unknown) (no date) (unknown) (unknown) CC: Chest pain after episode of emesis (units unknown) (unknown) (unknown) (no date) (unknown) (unknown) CK-MB (CK-2) (<2.37) ng/mL (units unknown) (unknown) (unknown) (no date) (unknown) (unknown) CK-MB (CK-2) 0.81 (<2.37) ng/mL (units unknown) (unknown) (unknown) (no date) (unknown) (unknown) CK-MB (CK-2) Rel Index (1.5-5.0) % (units unknown) (unknown) (unknown) (no date) (unknown) (unknown) CK-MB (CK-2) Rel Index 0.3 L (1.5-5.0) % (units unknown) (unknown) (unknown) (no date) (unknown) (unknown) Calcium (8.4-10.2) mg/dL (units unknown) (unknown) (unknown) (no date) (unknown) (unknown) Calcium 9.4 (8.4-10.2) mg/dL (units unknown) (unknown) (unknown) (no date) (unknown) (unknown) Carbon Dioxide (22-32) mmol/L (units unknown) (unknown) (unknown) (no date) (unknown) (unknown) Carbon Dioxide 23 (22-32) mmol/L (units unknown) (unknown) (unknown) (no date) (unknown) (unknown) Cardiac: Regular rate and rhythm no murmurs no bruits (units unknown) (unknown) (unknown) (no date) (unknown) (unknown) Chemistries show mildly elevated AST and ALT with normal alk-phos and normal (units unknown) (unknown) (unknown) (no date) (unknown) (unknown) Chest: Some tenderness along the costochondral borders, mild tenderness with (units unknown) (unknown) (unknown) (no date) (unknown) (unknown) Chief Complaint: Chest Pain (units unknown) (unknown) (unknown) (no date) (unknown) (unknown) Chloride (98-107) mmol/L (units unknown) (unknown) (unknown) (no date) (unknown) (unknown) Chloride 100 (98-107) mmol/L (units unknown) (unknown) (unknown) (no date) (unknown) (unknown) Clinical Impression: (units unknown) (unknown) (unknown) (no date) (unknown) (unknown) Complicating co-morbidities: Otherwise healthy (units unknown) (unknown) (unknown) (no date) (unknown) (unknown) Course (units unknown) (unknown) (unknown) (no date) (unknown) (unknown) Creatinine (0.66-1.25) mg/dL (units unknown) (unknown) (unknown) (no date) (unknown) (unknown) Creatinine 1.05 (0.66-1.25) mg/dL (units unknown) (unknown) (unknown) (no date) (unknown) (unknown) Creatinine was slightly elevated at 271 (units unknown) (unknown) (unknown) (no date) (unknown) (unknown) D Dimer Stat (units unknown) (unknown) (unknown) (no date) (unknown) (unknown) D-Dimer (<500) ng/ml (units unknown) (unknown) (unknown) (no date) (unknown) (unknown) D-Dimer 493 (<500) ng/ml (units unknown) (unknown) (unknown) (no date) (unknown) (unknown) : 1985 Acct:[id number] (units unknown) (unknown) (unknown) (no date) (unknown) (unknown) Data collected from: patient, (units unknown) (unknown) (unknown) (no date) (unknown) (unknown) Date of Service: 10/15/22 (units unknown) (unknown) (unknown) (no date) (unknown) (unknown) Departure (units unknown) (unknown) (unknown) (no date) (unknown) (unknown) Differential considered: Gastritis, esophagitis, acute coronary syndrome, (units unknown) (unknown) (unknown) (no date) (unknown) (unknown) Discharge Plan (units unknown) (unknown) (unknown) (no date) (unknown) (unknown) Discontinued Medications (units unknown) (unknown) (unknown) (no date) (unknown) (unknown) Discussion: Patient is re-evaluated. He is feeling significantly better after (units unknown) (unknown) (unknown) (no date) (unknown) (unknown) Documented By: NR (units unknown) (unknown) (unknown) (no date) (unknown) (unknown) ED Orders (units unknown) (unknown) (unknown) (no date) (unknown) (unknown) ER Physician: Vanesa Alexander MD (units unknown) (unknown) (unknown) (no date) (unknown) (unknown) Emergency Report (units unknown) (unknown) (unknown) (no date) (unknown) (unknown) Eos # (Auto) (0-450) /uL (units unknown) (unknown) (unknown) (no date) (unknown) (unknown) Eos # (Auto) 100 (0-450) /uL (units unknown) (unknown) (unknown) (no date) (unknown) (unknown) Eos % (Auto) (2-4) % (units unknown) (unknown) (unknown) (no date) (unknown) (unknown) Eos % (Auto) 2.2 (2-4) % (units unknown) (unknown) (unknown) (no date) (unknown) (unknown) Esterase (units unknown) (unknown) (unknown) (no date) (unknown) (unknown) Estimated GFR > 60 (>60) mL/min (units unknown) (unknown) (unknown) (no date) (unknown) (unknown) Estimated GFR (>60) mL/min (units unknown) (unknown) (unknown) (no date) (unknown) (unknown) Exam documented above, pertinent findings include: Minor tenderness with (units unknown) (unknown) (unknown) (no date) (unknown) (unknown) Exam (units unknown) (unknown) (unknown) (no date) (unknown) (unknown) Extremities: No trauma, well perfused (units unknown) (unknown) (unknown) (no date) (unknown) (unknown) Full and symmetrical air movement (units unknown) (unknown) (unknown) (no date) (unknown) (unknown) General (units unknown) (unknown) (unknown) (no date) (unknown) (unknown) General: Healthy appearing, in no acute distress. Able to give a complete and (units unknown) (unknown) (unknown) (no date) (unknown) (unknown) Globulin (1.7-4.1) g/dL (units unknown) (unknown) (unknown) (no date) (unknown) (unknown) Globulin 3.6 (1.7-4.1) g/dL (units unknown) (unknown) (unknown) (no date) (unknown) (unknown) Glucose (70-100) mg/dL (units unknown) (unknown) (unknown) (no date) (unknown) (unknown) Glucose 129 H (70-100) mg/dL (units unknown) (unknown) (unknown) (no date) (unknown) (unknown) HEENT: Moist mucous membranes, normal sclera with reactive pupils, (units unknown) (unknown) (unknown) (no date) (unknown) (unknown) HPI - Chest Pain (units unknown) (unknown) (unknown) (no date) (unknown) (unknown) HPI narrative: (units unknown) (unknown) (unknown) (no date) (unknown) (unknown) Hct (41-53) % (units unknown) (unknown) (unknown) (no date) (unknown) (unknown) Hct 47.7 (41-53) % (units unknown) (unknown) (unknown) (no date) (unknown) (unknown) He is now complaining of pain into the left chest that is worse with deep (units unknown) (unknown) (unknown) (no date) (unknown) (unknown) Hgb (13.5-17.5) g/dL (units unknown) (unknown) (unknown) (no date) (unknown) (unknown) Hgb 16.8 (13.5-17.5) g/dL (units unknown) (unknown) (unknown) (no date) (unknown) (unknown) History of Present Illness (units unknown) (unknown) (unknown) (no date) (unknown) (unknown) Hyaline Casts (None) (units unknown) (unknown) (unknown) (no date) (unknown) (unknown) Hyaline Casts 30-100/lpf (None) (units unknown) (unknown) (unknown) (no date) (unknown) (unknown) I think that your symptoms are likely viral related. This caused the nausea (units unknown) (unknown) (unknown) (no date) (unknown) (unknown) INR (0.9-1.3) (units unknown) (unknown) (unknown) (no date) (unknown) (unknown) INR 1.0 (0.9-1.3) (units unknown) (unknown) (unknown) (no date) (unknown) (unknown) If you find that you are getting worse or develop any new symptoms, please feel (units unknown) (unknown) (unknown) (no date) (unknown) (unknown) Imaging studies independently reviewed: Chest x-ray is unremarkable (units unknown) (unknown) (unknown) (no date) (unknown) (unknown) Independently reviewed EKG shows sinus tachycardia at a rate of 123, no acute (units unknown) (unknown) (unknown) (no date) (unknown) (unknown) Initial Vital Signs (units unknown) (unknown) (unknown) (no date) (unknown) (unknown) Initial Vital Signs: (units unknown) (unknown) (unknown) (no date) (unknown) (unknown) Instructions: DI for Atypical Chest Pain (units unknown) (unknown) (unknown) (no date) (unknown) (unknown) [address] [address] (units unknown) (unknown) (unknown) (no date) (unknown) (unknown) Lab Data (units unknown) (unknown) (unknown) (no date) (unknown) (unknown) Lab Results (units unknown) (unknown) (unknown) (no date) (unknown) (unknown) Lab Test results independently reviewed as above. Pertinent findings: (units unknown) (unknown) (unknown) (no date) (unknown) (unknown) Labs: (units unknown) (unknown) (unknown) (no date) (unknown) (unknown) Last Admin: 10/16/22 07:36 Dose: 1,000 mls/hr (units unknown) (unknown) (unknown) (no date) (unknown) (unknown) Last Admin: 10/16/22 07:36 Dose: 4 mg (units unknown) (unknown) (unknown) (no date) (unknown) (unknown) Last Admin: 10/16/22 07:36 Dose: 40 mg (units unknown) (unknown) (unknown) (no date) (unknown) (unknown) Last Admin: 10/16/22 08:18 Dose: Not Given (units unknown) (unknown) (unknown) (no date) (unknown) (unknown) Limitations: no limitations (units unknown) (unknown) (unknown) (no date) (unknown) (unknown) Lipase 142 (units unknown) (unknown) (unknown) (no date) (unknown) (unknown) Lipase Cancelled (units unknown) (unknown) (unknown) (no date) (unknown) (unknown) Lymph # (Auto) ([phone]) /uL (units unknown) (unknown) (unknown) (no date) (unknown) (unknown) Lymph # (Auto) 1000 L (6367-0903) /uL (units unknown) (unknown) (unknown) (no date) (unknown) (unknown) Lymph % (Auto) (25-40) % (units unknown) (unknown) (unknown) (no date) (unknown) (unknown) Lymph % (Auto) 15.3 L (25-40) % (units unknown) (unknown) (unknown) (no date) (unknown) (unknown) MCH (26-34) PG (units unknown) (unknown) (unknown) (no date) (unknown) (unknown) MCH 31.9 (26-34) PG (units unknown) (unknown) (unknown) (no date) (unknown) (unknown) MCHC (30-36) % (units unknown) (unknown) (unknown) (no date) (unknown) (unknown) MCHC 35.1 (30-36) % (units unknown) (unknown) (unknown) (no date) (unknown) (unknown) MCV (80-100) fL (units unknown) (unknown) (unknown) (no date) (unknown) (unknown) MCV 90.7 (80-100) fL (units unknown) (unknown) (unknown) (no date) (unknown) (unknown) MDM - Chest Pain (units unknown) (unknown) (unknown) (no date) (unknown) (unknown) MDM Narrative (units unknown) (unknown) (unknown) (no date) (unknown) (unknown) Magnesium (1.6-2.3) mg/dL (units unknown) (unknown) (unknown) (no date) (unknown) (unknown) Magnesium 2.1 (1.6-2.3) mg/dL (units unknown) (unknown) (unknown) (no date) (unknown) (unknown) Medical decision making narrative: (units unknown) (unknown) (unknown) (no date) (unknown) (unknown) Medication Instructions Recorded (units unknown) (unknown) (unknown) (no date) (unknown) (unknown) Micro UA Comment * (units unknown) (unknown) (unknown) (no date) (unknown) (unknown) Micro UA Comment (units unknown) (unknown) (unknown) (no date) (unknown) (unknown) Mode of arrival: Family Vehicle (units unknown) (unknown) (unknown) (no date) (unknown) (unknown) [place] # (Auto) (0-900) /uL (units unknown) (unknown) (unknown) (no date) (unknown) (unknown) [place] # (Auto) 600 (0-900) /uL (units unknown) (unknown) (unknown) (no date) (unknown) (unknown) [place] % (Auto) (3-14) % (units unknown) (unknown) (unknown) (no date) (unknown) (unknown) [place] % (Auto) 8.6 (3-14) % (units unknown) (unknown) (unknown) (no date) (unknown) (unknown) Narrative: (units unknown) (unknown) (unknown) (no date) (unknown) (unknown) Nausea + vomiting (units unknown) (unknown) (unknown) (no date) (unknown) (unknown) Neck: No JVD, supple (units unknown) (unknown) (unknown) (no date) (unknown) (unknown) Neurologic: Grossly neurologically intact with no obvious asymmetries or (units unknown) (unknown) (unknown) (no date) (unknown) (unknown) Neut # (Auto) (5851-0370) /uL (units unknown) (unknown) (unknown) (no date) (unknown) (unknown) Neut # (Auto) 4900 (6878-8942) /uL (units unknown) (unknown) (unknown) (no date) (unknown) (unknown) Neut % (Auto) (50-75) % (units unknown) (unknown) (unknown) (no date) (unknown) (unknown) Neut % (Auto) 73.2 (50-75) % (units unknown) (unknown) (unknown) (no date) (unknown) (unknown) New (units unknown) (unknown) (unknown) (no date) (unknown) (unknown) No evidence of acute surgical abdomen. (units unknown) (unknown) (unknown) (no date) (unknown) (unknown) ONE (units unknown) (unknown) (unknown) (no date) (unknown) (unknown) Ondansetron HCl (Ondansetron 4 Mg/2 Ml Inj) 4 mg IV NOW ONE (units unknown) (unknown) (unknown) (no date) (unknown) (unknown) Ordered: (units unknown) (unknown) (unknown) (no date) (unknown) (unknown) Orders (units unknown) (unknown) (unknown) (no date) (unknown) (unknown) Otherwise healthy 37-year-old gentleman who presents with chest pain through the (units unknown) (unknown) (unknown) (no date) (unknown) (unknown) Oxygen Delivery Method Room Air 10/15/22 22:48 (units unknown) (unknown) (unknown) (no date) (unknown) (unknown) PT (10.1-12.7) SECONDS (units unknown) (unknown) (unknown) (no date) (unknown) (unknown) PT 11.1 (10.1-12.7) SECONDS (units unknown) (unknown) (unknown) (no date) (unknown) (unknown) Pantoprazole Sodium (Pantoprazole 40 Mg Vial) 40 mg IV NOW ONE (units unknown) (unknown) (unknown) (no date) (unknown) (unknown) Patient Disposition: Home (units unknown) (unknown) (unknown) (no date) (unknown) (unknown) Patient: Shamar Briones MR# (units unknown) (unknown) (unknown) (no date) (unknown) (unknown) Plt Count (150-400) X103/uL (units unknown) (unknown) (unknown) (no date) (unknown) (unknown) Plt Count 272 (150-400) X103/uL (units unknown) (unknown) (unknown) (no date) (unknown) (unknown) Potassium (3.4-5.1) mmol/L (units unknown) (unknown) (unknown) (no date) (unknown) (unknown) Potassium 3.9 (3.4-5.1) mmol/L (units unknown) (unknown) (unknown) (no date) (unknown) (unknown) Prescriptions: (units unknown) (unknown) (unknown) (no date) (unknown) (unknown) Previous Rx's (units unknown) (unknown) (unknown) (no date) (unknown) (unknown) Provider,Candelaria HAYWOOD [Primary Care Provider] (units unknown) (unknown) (unknown) (no date) (unknown) (unknown) Psych: Cooperative, appropriate insight and affect (units unknown) (unknown) (unknown) (no date) (unknown) (unknown) Pulse Oximetry 95 97 (units unknown) (unknown) (unknown) (no date) (unknown) (unknown) Pulse Oximetry 95 (units unknown) (unknown) (unknown) (no date) (unknown) (unknown) Pulse Oximetry 96 95 (units unknown) (unknown) (unknown) (no date) (unknown) (unknown) Pulse Oximetry 96 97 (units unknown) (unknown) (unknown) (no date) (unknown) (unknown) Pulse Oximetry 96 (units unknown) (unknown) (unknown) (no date) (unknown) (unknown) Pulse Oximetry 99 10/15/22 22:48 (units unknown) (unknown) (unknown) (no date) (unknown) (unknown) Pulse Rate 100 H 104 H (units unknown) (unknown) (unknown) (no date) (unknown) (unknown) Pulse Rate 103 H 101 H (units unknown) (unknown) (unknown) (no date) (unknown) (unknown) Pulse Rate 105 H (units unknown) (unknown) (unknown) (no date) (unknown) (unknown) Pulse Rate 107 H 107 H (units unknown) (unknown) (unknown) (no date) (unknown) (unknown) Pulse Rate 128 H 10/15/22 22:48 (units unknown) (unknown) (unknown) (no date) (unknown) (unknown) Pulse Rate 94 H (units unknown) (unknown) (unknown) (no date) (unknown) (unknown) Pulse Rate 96 H 95 H (units unknown) (unknown) (unknown) (no date) (unknown) (unknown) Pulse Rate 97 H 98 H (units unknown) (unknown) (unknown) (no date) (unknown) (unknown) Pulse Rate 99 H (units unknown) (unknown) (unknown) (no date) (unknown) (unknown) Qualifiers: (units unknown) (unknown) (unknown) (no date) (unknown) (unknown) RBC (4.5-5.9) X106/uL (units unknown) (unknown) (unknown) (no date) (unknown) (unknown) RBC 5.26 (4.5-5.9) X106/uL (units unknown) (unknown) (unknown) (no date) (unknown) (unknown) RDW (11.6-14.8) % (units unknown) (unknown) (unknown) (no date) (unknown) (unknown) RDW 14.0 (11.6-14.8) % (units unknown) (unknown) (unknown) (no date) (unknown) (unknown) Referrals: (units unknown) (unknown) (unknown) (no date) (unknown) (unknown) Related Data (units unknown) (unknown) (unknown) (no date) (unknown) (unknown) Remainder of complete review of systems is otherwise unremarkable except for (units unknown) (unknown) (unknown) (no date) (unknown) (unknown) Respiratory Rate 12 13 (units unknown) (unknown) (unknown) (no date) (unknown) (unknown) Respiratory Rate 14 15 (units unknown) (unknown) (unknown) (no date) (unknown) (unknown) Respiratory Rate 14 (units unknown) (unknown) (unknown) (no date) (unknown) (unknown) Respiratory Rate 15 17 (units unknown) (unknown) (unknown) (no date) (unknown) (unknown) Respiratory Rate 16 15 (units unknown) (unknown) (unknown) (no date) (unknown) (unknown) Respiratory Rate 17 10 L (units unknown) (unknown) (unknown) (no date) (unknown) (unknown) Respiratory Rate 18 (units unknown) (unknown) (unknown) (no date) (unknown) (unknown) Respiratory Rate 20 (units unknown) (unknown) (unknown) (no date) (unknown) (unknown) Respiratory Rate 22 10/15/22 22:48 (units unknown) (unknown) (unknown) (no date) (unknown) (unknown) Respiratory Rate 8 L (units unknown) (unknown) (unknown) (no date) (unknown) (unknown) Respiratory: Lungs are clear to auscultation, no wheezing no rales no rhonchi. (units unknown) (unknown) (unknown) (no date) (unknown) (unknown) Review of Systems (units unknown) (unknown) (unknown) (no date) (unknown) (unknown) Signed By: (units unknown) (unknown) (unknown) (no date) (unknown) (unknown) Skin: Warm and dry, no rashes (units unknown) (unknown) (unknown) (no date) (unknown) (unknown) Sodium (137-145) mmol/L (units unknown) (unknown) (unknown) (no date) (unknown) (unknown) Sodium 138 (137-145) mmol/L (units unknown) (unknown) (unknown) (no date) (unknown) (unknown) Sodium Chloride (Normal Saline 0.9%) 1,000 mls @ 1,000 mls/hr IV BOLUS ONE (units unknown) (unknown) (unknown) (no date) (unknown) (unknown) Source: patient (units unknown) (unknown) (unknown) (no date) (unknown) (unknown) Stand Alone Forms: Patient Portal/API (units unknown) (unknown) (unknown) (no date) (unknown) (unknown) Stated Complaint: Chest discomfort, vomiting, abd pain x1 week (units unknown) (unknown) (unknown) (no date) (unknown) (unknown) Stop: 10/16/22 06:50 (units unknown) (unknown) (unknown) (no date) (unknown) (unknown) Stop: 10/16/22 07:48 (units unknown) (unknown) (unknown) (no date) (unknown) (unknown) Stop: 10/16/22 08:20 (units unknown) (unknown) (unknown) (no date) (unknown) (unknown) Temperature 97.9 F 10/15/22 22:48 (units unknown) (unknown) (unknown) (no date) (unknown) (unknown) Thank you for coming in today (units unknown) (unknown) (unknown) (no date) (unknown) (unknown) Time Seen by Provider: 10/16/22 03:34 (units unknown) (unknown) (unknown) (no date) (unknown) (unknown) Total Bilirubin (0.2-1.3) mg/dL (units unknown) (unknown) (unknown) (no date) (unknown) (unknown) Total Bilirubin 0.6 (0.2-1.3) mg/dL (units unknown) (unknown) (unknown) (no date) (unknown) (unknown) Total Creatine Kinase (55-170) U/L (units unknown) (unknown) (unknown) (no date) (unknown) (unknown) Total Creatine Kinase 271 H (55-170) U/L (units unknown) (unknown) (unknown) (no date) (unknown) (unknown) Total Protein (6.3-8.2) g/dL (units unknown) (unknown) (unknown) (no date) (unknown) (unknown) Total Protein 8.9 H (6.3-8.2) g/dL (units unknown) (unknown) (unknown) (no date) (unknown) (unknown) Troponin I < 0.012 (0.01-0.034) ng/mL (units unknown) (unknown) (unknown) (no date) (unknown) (unknown) Troponin I (0.01-0.034) ng/mL (units unknown) (unknown) (unknown) (no date) (unknown) (unknown) Troponin is undetectable and CK-MB fraction is low. (units unknown) (unknown) (unknown) (no date) (unknown) (unknown) Urine Bacteria (None) (units unknown) (unknown) (unknown) (no date) (unknown) (unknown) Urine Bacteria None seen (None) (units unknown) (unknown) (unknown) (no date) (unknown) (unknown) Urine Dip (units unknown) (unknown) (unknown) (no date) (unknown) (unknown) Urine RBC (0-5/HPF) (units unknown) (unknown) (unknown) (no date) (unknown) (unknown) Urine RBC None seen (0-5/HPF) (units unknown) (unknown) (unknown) (no date) (unknown) (unknown) Urine Specific [place] 1.020 (units unknown) (unknown) (unknown) (no date) (unknown) (unknown) Urine WBC (0-5/HPF) (units unknown) (unknown) (unknown) (no date) (unknown) (unknown) Urine WBC 0-1/hpf (0-5/HPF) (units unknown) (unknown) (unknown) (no date) (unknown) (unknown) Vital Signs - 8 hr (units unknown) (unknown) (unknown) (no date) (unknown) (unknown) Vital Signs (units unknown) (unknown) (unknown) (no date) (unknown) (unknown) Vital signs: (units unknown) (unknown) (unknown) (no date) (unknown) (unknown) Vomiting type: unspecified Qualified Code(s): R11.2 - Nausea with vomiting, (units unknown) (unknown) (unknown) (no date) (unknown) (unknown) WBC (4.5-11.0) X103/uL (units unknown) (unknown) (unknown) (no date) (unknown) (unknown) WBC 6.7 (4.5-11.0) X103/uL (units unknown) (unknown) (unknown) (no date) (unknown) (unknown) We are going to give you a prescription for Zofran to use should the nausea (units unknown) (unknown) (unknown) (no date) (unknown) (unknown) Your blood work was quite reassuring. There is no evidence of bacterial (units unknown) (unknown) (unknown) (no date) (unknown) (unknown) [Embedded Image Not Available] (units unknown) (unknown) (unknown) (no date) (unknown) (unknown) abnormalities (units unknown) (unknown) (unknown) (no date) (unknown) (unknown) abnormalities. I suspect that his symptoms are likely viral related and related (units unknown) (unknown) (unknown) (no date) (unknown) (unknown) bilirubin. Renal function is appropriate. (units unknown) (unknown) (unknown) (no date) (unknown) (unknown) breathing and with movement. Symptoms have been ongoing for the last 48 hours (units unknown) (unknown) (unknown) (no date) (unknown) (unknown) chest symptoms. At this time I am not finding any life-threatening (units unknown) (unknown) (unknown) (no date) (unknown) (unknown) coherent history. Well-nourished well-developed (units unknown) (unknown) (unknown) (no date) (unknown) (unknown) epigastrium and upper middle of his chest worse after eating and after emesis. (units unknown) (unknown) (unknown) (no date) (unknown) (unknown) fluid and Zofran. He feels with Maalox did make slight improvement in overall (units unknown) (unknown) (unknown) (no date) (unknown) (unknown) fluids including Gatorade. (units unknown) (unknown) (unknown) (no date) (unknown) (unknown) free to return to the emergency department for further evaluation. (units unknown) (unknown) (unknown) (no date) (unknown) (unknown) good bowel tones, no flank pain (units unknown) (unknown) (unknown) (no date) (unknown) (unknown) he is increasingly concerned above. He describes no orthopnea, dyspnea, (units unknown) (unknown) (unknown) (no date) (unknown) (unknown) headaches, fevers, cough, diarrhea, lower extremity edema. (units unknown) (unknown) (unknown) (no date) (unknown) (unknown) infection, acute heart attack, renal failure or kidney failure. Your heart rate (units unknown) (unknown) (unknown) (no date) (unknown) (unknown) ischemic changes. Normal axis. (units unknown) (unknown) (unknown) (no date) (unknown) (unknown) lateral compression of the ribs. No skin changes. (units unknown) (unknown) (unknown) (no date) (unknown) (unknown) muscles to vomit. (units unknown) (unknown) (unknown) (no date) (unknown) (unknown) ondansetron 4 mg disintegrating 4 mg PO Q8H PRN nausea and 10/16/22 (units unknown) (unknown) (unknown) (no date) (unknown) (unknown) ondansetron 4 mg tablet,disintegrati ng (units unknown) (unknown) (unknown) (no date) (unknown) (unknown) other. He is safe for discharge home (units unknown) (unknown) (unknown) (no date) (unknown) (unknown) pain has improved all findings were reviewed with patient and his significant (units unknown) (unknown) (unknown) (no date) (unknown) (unknown) palpation along the sternal borders and with lateral compression of the chest. (units unknown) (unknown) (unknown) (no date) (unknown) (unknown) pancreatitis, cholecystitis, costochondritis, musculoskeletal pain (units unknown) (unknown) (unknown) (no date) (unknown) (unknown) return. Would encourage you to be gentle today, gets more sleep drinks more (units unknown) (unknown) (unknown) (no date) (unknown) (unknown) suggesting that you are dehydrated. (units unknown) (unknown) (unknown) (no date) (unknown) (unknown) tablet vomiting #14 tabs (units unknown) (unknown) (unknown) (no date) (unknown) (unknown) that included in the HPI. (units unknown) (unknown) (unknown) (no date) (unknown) (unknown) to the vomiting and severity have his vomiting. Is able to tolerate fluids (units unknown) (unknown) (unknown) (no date) (unknown) (unknown) unspecified (units unknown) (unknown) (unknown) (no date) (unknown) (unknown) was slightly elevated on arrival but came down nicely with a L of fluid (units unknown) (unknown) (unknown) (no date) (unknown) (unknown) which caused the severe retching which caused the pain up the center portion of (units unknown) (unknown) (unknown) (no date) (unknown) (unknown) your chest and likely the musculoskeletal pain on her sides. It takes a lot of (units unknown) (unknown) Result panel 48 (unknown) (no date) (unknown) (unknown) No growth. (units unknown) (unknown) Result panel 49 (unknown) (no date) (unknown) (unknown) No growth. (units unknown) (unknown) Social History date description facility 2022-10-16 00:00 Unknown if ever smoked [facility] Vital Signs date measurement value units 2022-10-15 00:00 BMI 22.4 kg/m2 2022-10-15 00:00 height_metric 187.96 cm 2022-10-15 00:00 height_standard 74 in 2022-10-15 00:00 temperature_metric 36.61 C 2022-10-15 00:00 temperature_standard 97.9 F 2022-10-15 00:00 weight_metric 79.37 kg 2022-10-15 00:00 weight_standard 174.98 lb 2022-10-16 00:00 BP_diastolic 74 mmHg 2022-10-16 00:00 BP_systolic 127 mmHg 2022-10-16 00:00 heart_rate 88 /min 2022-10-16 00:00 o2_saturation 100 % 2022-10-16 00:00 respiration_rate 18 /min
[2022-11-06 09:16] LABS: BASOPHILS % (AUTO) 0.3 %; HCT - HEMATOCRIT 46.5 % (42.0-52.0); HGB - HEMOGLOBIN 15.9 g/dL (14.0-18.0); LYMPHOCYTES # (AUTO) 0.6 10^3/uL (1.5-3.5); MEAN CORPUSCULAR HEMOGLOBIN 31.2 pg (27.0-31.0); MEAN CORPUSCULAR HGB CONC 34.2 g/dL (32.0-36.0); MEAN CORPUSCULAR VOLUME 91.2 fL (80.0-94.0); MEAN PLATELET VOLUME 9.5 fL (7.4-11.4); MONOCYTES # (AUTO) 0.9 10^3/uL (0.0-1.0); MONOCYTES % (AUTO) 7.6 %; NEUTROPHILS # (AUTO) 10.5 10^3/uL (1.5-6.6); NEUTROPHILS % (AUTO) 86.8 %; PLT - PLATELET COUNT 274 10^3/uL (130-450); WHITE BLOOD COUNT 12.1 x10^3/uL (4.8-10.8)
[2022-11-06 09:27] LABS: INR 0.9 (0.8-1.2); PT - PROTHROMBIN TIME 10.6 secs (9.9-12.6)
[2022-11-06 09:30] LABS: ALBUMIN/GLOBULIN RATIO 1.4 (1.0-2.2); BILIRUBIN,TOTAL 1.2 mg/dL (0.2-1.0); CALCIUM 9.2 mg/dL (8.5-10.3); CREATININE 1.8 mg/dL (0.6-1.2); POTASSIUM 3.5 mmol/L (3.5-5.0); TOTAL PROTEIN 8.7 g/dL (6.7-8.2)
[2022-11-06] MEDS ORDERED: PANTOPRAZOLE 40 MG VIAL IV STA (09:39)
--- NOTE | 2022-11-06 10:21 | CT Report ---
PROCEDURE: ABDOMEN/PELVIS W INDICATIONS: hematemesis, upper abd pain CONTRAST: 100ml Omni 350 TECHNIQUE: After the administration of intravenous contrast, 5 mm thick sections acquired from the diaphragms to the symphysis. 5 mm thick coronal and sagittal reformats were acquired. For radiation dose reducti on, the following was used: automated exposure control, adjustment of mA and/or kV according to leelee ent size. COMPARISON: None FINDINGS: Image quality: Excellent. Lung bases and heart: Unremarkable. Liver: No solid mass. Gallbladder and biliary tree: No radiopaque stones or wall thickening. No biliary dilation. Spleen: No splenomegaly. Pancreas: No pancreatic ductal dilation. Adrenals: No adrenal nodule. Kidneys and ureters: No hydronephrosis. No renal cystic lesion which requires follow up. No solid mas s. Bowel and peritoneum: No bowel distension. No pathologic free fluid. Lymph nodes: No central or retroperitoneal adenopathy. Vessels: No infrarenal aortic aneurysm. PELVIS Reproductive organs: Trace penile calcification, probably due to prior trauma. Bladder: No abnormal wall thickening, accounting for underdistension. Pelvic lymph nodes: No pelvic adenopathy by size criteria. Bones: No aggressive osseous abnormality. Other: No significant ventral or inguinal hernia. IMPRESSION: No acute abnormality. No findings to explain the patient's hemoptysis. No gallbladder or pancreatic p athology. Trace canal calcifications, probably due to prior trauma, less likely early Peyronie's disease. Reviewed by: Cristo Merino on 11/06/2022 10:19 AM PDT Approved by: Cristo Merino on 11/06/2022 10:19 AM PDT Station ID: [id number]
--- NOTE | 2022-11-06 11:31 | ED Physician Documentation ---
PD HPI GI BLEED - Stated complaint Stated Complaint: MALE GI/ THROWING UP BLOOD - Chief complaint Chief Complaint: Abd Pain - History obtained from History obtained from: Patient - Additional information Additional information: The patient comes to the emergency department chief complaint of hematemesis today. He states that he felt fine when he went to bed last night and his last meal was around 2100. He woke up at 0 130 with nausea and shortly thereafter, began to vomit. He states initially the vomit was clear with a little bit of streaking of bloody mucus, but that he developed increasing bloody output throughout the 6 episodes of vomiting that he had. He has brought with him a picture on his phone of the vomitus that he produced near the end and it was mostly clear with a glob and streaking of gelatinous appearing light red and dark red blood. The patient denies any chest pain, shortness of breath, or lightheadedness. No diarrhea. He has not been using NSAIDs recently. He has no history of gastritis or ulcers. He does have a history of some GERD. The patient does drink several shots of hard alcohol every night and states that he has a very stressful job with the [employer]. He does not smoke or chew anymore. No other complaints at this time. PD PAST MEDICAL HISTORY - Past Surgical History Past Surgical History: No - Present Medications Home Medications: Ambulatory Orders Medication Instructions Recorded Confirmed Lisinopril [Zestril] 20 mg PO DAILY 11/06/22 11/06/22 Omeprazole 40 mg PO DAILY #60 cap 11/06/22 Ondansetron Odt [Zofran] 4 mg TL Q6H PRN #10 tablet 11/06/22 - Allergies Allergies/Adverse Reactions: Allergies Allergy/AdvReac Type Severity Reaction Status Date / Time No Known Drug Allergies Allergy Verified 11/06/22 08:53 - Social History Does the pt smoke?: No Smoking Status: Never smoker Does the pt drink ETOH?: Yes Does the pt have substance abuse?: No - Immunizations Immunizations are current?: Yes - POLST Patient has POLST: No PD ED PE NORMAL - Vitals Vital signs reviewed: Yes - General General: Alert and oriented X 3, No acute distress, Well developed/nourished - HEENT HEENT: Atraumatic, PERRL, EOMI, Moist mucous membranes - Neck Neck: Supple, no meningeal sign - Cardiac Cardiac: RRR, No murmur - Respiratory Respiratory: No respiratory distress, Clear bilaterally - Abdomen Abdomen: Soft, Non distended, Other (Mild epigastric and left upper quadrant tenderness, no rebound or guarding) - Derm Derm: Normal color, Warm and dry, No rash - Extremities Extremities: No deformity - Neuro Neuro: Alert and oriented X 3, Other (Grossly intact) - Psych Psych: Normal mood, Normal affect Results - Vitals Vitals: Vital Signs - 24 hr 11/06/22 11/06/22 11/06/22 08:47 10:14 10:30 Temperature 36.5 C Heart Rate 93 90 80 Respiratory 16 16 16 Rate Blood Pressure 146/91 H 181/87 H 148/84 H O2 Saturation 100 100 100 Oxygen O2 Source Room air - Labs Labs: Laboratory Tests 11/06/22 11/06/22 11/06/22 09:05 09:05 09:05 WBC 12.1 H RBC 5.10 Hgb 15.9 Hct 46.5 MCV 91.2 MCH 31.2 H MCHC 34.2 RDW 13.0 Plt Count 274 MPV 9.5 Neut # (Auto) 10.5 H Lymph # (Auto) 0.6 L [place] # (Auto) 0.9 Eos # (Auto) 0.0 Baso # (Auto) 0.0 Absolute Nucleated RBC 0.00 Nucleated RBC % 0.0 PT 10.6 INR 0.9 Sodium 133 L Potassium 3.5 Chloride 95 L Carbon Dioxide 27 Anion Gap 11.0 BUN 14 Creatinine 1.8 H Estimated GFR (MDRD) 42 L Glucose 123 H Calcium 9.2 Total Bilirubin 1.2 H AST 56 H ALT 66 H Alkaline Phosphatase 51 Total Protein 8.7 H Albumin 5.0 Globulin 3.7 Albumin/Globulin Ratio 1.4 Lipase 39 Blood Type Blood Type Recheck Antibody Screen 11/06/22 11/06/22 09:05 09:16 WBC RBC Hgb Hct MCV MCH MCHC RDW Plt Count MPV Neut # (Auto) Lymph # (Auto) [place] # (Auto) Eos # (Auto) Baso # (Auto) Absolute Nucleated RBC Nucleated RBC % PT INR Sodium Potassium Chloride Carbon Dioxide Anion Gap BUN Creatinine Estimated GFR (MDRD) Glucose Calcium Total Bilirubin AST ALT Alkaline Phosphatase Total Protein Albumin Globulin Albumin/Globulin Ratio Lipase Blood Type A POSITIVE Blood Type Recheck A POSITIVE Antibody Screen NEGATIVE - Rads (name of study) CT abdomen and pelvis with contrast Relevant Findings:: Final report received, See rad report (Negative) PD Medical Decision Making - ED course Complexity details: reviewed results, re-evaluated patient, considered differential, d/w patient ED course: The patient's laboratory studies, including ER abdominal panel and CBC, were ordered and reviewed by me. He had a normal hemoglobin and white blood cell count was only slightly abnormal. The patient had mildly elevated LFTs. He was sent for CT scan of the abdomen and pelvis which was unremarkable. Patient was stable for discharge home. He had been given IV fluid, Zofran, and Protonix in the ED and was feeling better. I have sent prescriptions for Zofran and PPI to the pharmacy of the patient's choice. We discussed the need for follow-up to discuss having a scope done. We discussed the usual indications for return. Departure - Departure Disposition: Home, Self Care Clinical Impression: Vomiting Qualifiers: Vomiting type: bilious vomiting Nausea presence: with nausea Qualified Code(s): R11.14 - Bilious vomiting Hematemesis Qualifiers: Nausea presence: with nausea Qualified Code(s): K92.0 - Hematemesis Condition: Stable Instructions: ED Nausea Vomiting, ED Bleed UGI Stable Prescriptions: Omeprazole 40 mg PO DAILY #60 cap Ondansetron Odt [Zofran] 4 mg TL Q6H PRN #10 tablet PRN Reason: Nausea / Vomiting Comments: Your labs showed a normal hemoglobin level, which is one of the measures of red blood cells. You did have slightly elevated liver function test, and this is most likely from the regular alcohol intake. Please consider cutting back to prevent liver damage. Your CT scan did not show any specifically concerning findings. Most likely, you have one of the many viral illnesses that is are going around at this time and probably have some underlying inflammation of your stomach lining that is caused you to have bleeding. However, it is important that you follow-up with your doctor to discuss being referred for endoscopy to further evaluate the bleeding of your stomach lining. Prescriptions for nausea medicine and for an antacid have been electronically transmitted to the [facility] pharmacy in [place], your pharmacy of choice on record.
[2022-11-06 11:46] VITALS: BP 140/85
== END 2022-11-06 11:44 | disposition home or self-care (01) ==
LOC: ED 08:41
DX: R11.14 Bilious vomiting (principal); K92.0 Hematemesis; R74.01 Elevation of levels of liver transaminase levels; Z87.891 Personal history of nicotine dependence
CPT/HCPCS: 36415; 74177; 80053; 83690; 85025; 85610; 86850; 86900; 86901; 96374; 96375; 99284; Q9967

== ENCOUNTER 2023-02-16 11:42 | Emergency (ER) | payer OTHER ==
[2023-02-16 12:26] LABS: BASOPHILS # (AUTO) 0.1 10^3/uL (0.0-0.1); BASOPHILS % (AUTO) 0.6 %; EOSINOPHILS % (AUTO) 0.1 %; HCT - HEMATOCRIT 45.8 % (42.0-52.0); HGB - HEMOGLOBIN 15.7 g/dL (14.0-18.0); LYMPHOCYTES # (AUTO) 0.6 10^3/uL (1.5-3.5); MEAN CORPUSCULAR HEMOGLOBIN 30.8 pg (27.0-31.0); MEAN CORPUSCULAR HGB CONC 34.3 g/dL (32.0-36.0); MEAN PLATELET VOLUME 9.4 fL (7.4-11.4); MONOCYTES # (AUTO) 0.5 10^3/uL (0.0-1.0); MONOCYTES % (AUTO) 4.7 %; NEUTROPHILS # (AUTO) 9.3 10^3/uL (1.5-6.6); NEUTROPHILS % (AUTO) 88.2 %; PLT - PLATELET COUNT 260 10^3/uL (130-450); RED BLOOD COUNT 5.09 10^6/uL (4.70-6.10); RED CELL DISTRIBUTION WIDTH 14.5 % (12.0-15.0); WHITE BLOOD COUNT 10.6 x10^3/uL (4.8-10.8)
[2023-02-16] MEDS ORDERED: chlordiazePOXIDE 25 MG CAPSULE PO STA (12:36)
--- NOTE | 2023-02-16 12:43 | ED Physician Documentation ---
History of Present Illness - Stated complaint Stated Complaint: WITHDRAWAL - Chief complaint Chief Complaint: General - History obtained from History obtained from: Patient - History of Present Illness Timing: Today Pain level max: 0 Pain level now: 0 - Additonal information Additional information: Patient is a 56-year-old male who presents to the emergency department stating that he is an alcoholic and he is in the [employer]. He is being seen by the [employer] [facility] daily, he states his last drink of alcohol was last night around 6 PM. He states that today he has had some mild shaking and the [facility] sent him here for "stabilization". He states that his doctor is writing him medications for withdrawal today. He does not want to go to detox. He states that his is a nurse who will take care of him at home. He has not had seizures before. He states about 2 months ago he had quit drinking for about a month without any seizures or significant withdrawal. No hallucinations. No chest pain. No shortness of breath. No vomiting. Review of Systems Constitutional: denies: Fever, Chills Respiratory: denies: Cough GI: denies: Nausea, Vomiting, Diarrhea Skin: denies: Rash Musculoskeletal: denies: Neck pain, Back pain Neurologic: denies: Headache PD PAST MEDICAL HISTORY - Past Medical History Past Medical History: Yes - Past Surgical History Past Surgical History: No - Present Medications Home Medications: Ambulatory Orders Medication Instructions Recorded Confirmed Lisinopril [Zestril] 20 mg PO DAILY 11/06/22 11/06/22 Omeprazole 40 mg PO DAILY #60 cap 11/06/22 Ondansetron Odt [Zofran] 4 mg TL Q6H PRN #10 tablet 11/06/22 Naltrexone HCl 50 mg PO DAILY #7 tablet 02/16/23 chlordiazePOXIDE [Librium] 25 - 50 mg PO Q6H PRN #20 cap 02/16/23 - Allergies Allergies/Adverse Reactions: Allergies Allergy/AdvReac Type Severity Reaction Status Date / Time No Known Drug Allergies Allergy Verified 02/16/23 11:52 - Social History Does the pt smoke?: No Smoking Status: Never smoker Does the pt drink ETOH?: Yes ETOH Use: Liquor Does the pt have substance abuse?: No - Immunizations Immunizations are current?: Yes - POLST Patient has POLST: No PD ED PE NORMAL - Vitals Vital signs reviewed: Yes - General General: Alert and oriented X 3, No acute distress - HEENT HEENT: PERRL, Moist mucous membranes - Neck Neck: Supple, no meningeal sign - Cardiac Cardiac: RRR, Strong equal pulses - Respiratory Respiratory: No respiratory distress, Clear bilaterally - Abdomen Abdomen: Soft, Non tender, Non distended - Back Back: No CVA TTP, No spinal TTP - Derm Derm: Warm and dry, No rash - Extremities Extremities: Other (Mild shaking.) - Neuro Neuro: Alert and oriented X 3 - Psych Psych: Normal mood, Normal affect Results - Vitals Vitals: Vital Signs - 24 hr 02/16/23 02/16/23 11:47 14:11 Temperature 37.5 C Heart Rate 106 H 79 Respiratory 20 20 Rate Blood Pressure 166/89 H 144/76 H O2 Saturation 100 96 Oxygen O2 Source Room air - Labs Labs: Laboratory Tests 02/16/23 02/16/23 02/16/23 12:21 12:21 14:08 WBC 10.6 RBC 5.09 Hgb 15.7 Hct 45.8 MCV 90.0 MCH 30.8 MCHC 34.3 RDW 14.5 Plt Count 260 MPV 9.4 Neut # (Auto) 9.3 H Lymph # (Auto) 0.6 L [place] # (Auto) 0.5 Eos # (Auto) 0.0 Baso # (Auto) 0.1 Absolute Nucleated RBC 0.00 Nucleated RBC % 0.0 Sodium 135 Potassium 3.7 Chloride 97 L Carbon Dioxide 25 Anion Gap 13.0 BUN 9 Creatinine 0.7 Estimated GFR (MDRD) 126 Glucose 107 H Calcium 10.0 Magnesium 1.3 L Total Bilirubin 0.9 AST 47 H ALT 62 H Alkaline Phosphatase 55 Total Creatine Kinase 66 Total Protein 8.2 Albumin 5.2 Globulin 3.0 Albumin/Globulin Ratio 1.7 Lipase 37 TSH 1.24 Urine Color YELLOW Urine Clarity CLEAR Urine pH 6.5 Ur Specific [place] 1.010 Urine Protein NEGATIVE Urine Glucose (UA) NEGATIVE Urine Ketones TRACE Urine Occult Blood NEGATIVE Urine Nitrite NEGATIVE Urine Bilirubin NEGATIVE Urine Urobilinogen 0.2 (NORMAL) Ur Leukocyte Esterase NEGATIVE Ur Microscopic Review NOT INDICATED Urine Culture Comments NOT INDICATED Salicylates < 1.5 Urine Opiates Screen NEGATIVE Ur Oxycodone Screen NEGATIVE Urine Methadone Screen NEGATIVE Ur Propoxyphene Screen NEGATIVE Acetaminophen 0.1 Ur Barbiturates Screen NEGATIVE Ur Tricyclics Screen NEGATIVE Ur Phencyclidine Scrn NEGATIVE Ur Amphetamine Screen NEGATIVE U Methamphetamines Scrn NEGATIVE U Benzodiazepines Scrn NEGATIVE Urine Cocaine Screen NEGATIVE U Cannabinoids Screen NEGATIVE Ethyl Alcohol < 10.0 PD Medical Decision Making - ED course Complexity details: reviewed results, re-evaluated patient, considered differential, d/w patient, d/w family ED course: 37-year-old male with mild alcohol withdrawal symptoms. He feels much better after IV fluids, magnesium for his hypomagnesemia and Librium. His is going to be taking care of at home, we will prescribe Librium for home. He has rehab set up for next week through the [facility]. They did contact the [employer] [facility] to see what medications they were going to prescribe for him today, they states that they were going to prescribe naltrexone but as he did not go to his appointment because they sent him here they were not going to prescribe his medications. Therefore we will prescribe patient Librium and naltrexone for home. Patient does not want to go to inpatient detox at this time. No history of seizures. Patient and family counseled regarding signs and symptoms for which I believe and urgent re-evaluation would be necessary. Patient with good understanding of and agreement to plan and is comfortable going home at this time This document was made in part using voice recognition software. While efforts a re made to proofread this document, sound alike and grammatical errors may occur. Departure - Departure Disposition: 01 Home, Self Care Clinical Impression: Alcohol withdrawal Qualifiers: Complication of substance-induced condition: uncomplicated Qualified Code(s): F10.930 - Alcohol use, unspecified with withdrawal, uncomplicated Condition: Good Instructions: ED Withdrawal Alcohol Follow-Up: your,doctor tomorrow [Other] Prescriptions: chlordiazePOXIDE [Librium] 25 - 50 mg PO Q6H PRN #20 cap PRN Reason: Alcohol Withdrawal Naltrexone HCl 50 mg PO DAILY #7 tablet Comments: [place]. Please return if you worsen. Use the medications as prescribed. If you change your mind about going to detox, you may contact [facility]. Your prescriptions were sent to [facility] in [place]. Contact: [facility] [address] [place] [phone] Fax: Forms: PCP List Discharge Date/Time: 02/16/23 14:26
[2023-02-16 12:44] LABS: ACETAMINOPHEN 0.1 ug/mL; ALBUMIN 5.2 g/dL (3.2-5.5); ALBUMIN/GLOBULIN RATIO 1.7 (1.0-2.2); ALKALINE PHOSPHATASE 55 IU/L (42-121); ALT ALANINE AMINOTRANSFERASE 62 IU/L (10-60); AST ASPARTATE AMINOTRANSFERASE 47 IU/L (10-42); BILIRUBIN,TOTAL 0.9 mg/dL (0.2-1.0); BUN - BLOOD UREA NITROGEN 9 mg/dL (6-20); CARBON DIOXIDE - CO2 25 mmol/L (21-32); CHLORIDE 97 mmol/L (101-111); CK- CREATINE KINASE 66 IU/L (30-223); CREATININE 0.7 mg/dL (0.6-1.3); ETOH - ETHANOL < 10.0 mg/dL; GFR - MDRD 126 (>89); GLUCOSE 107 mg/dL (74-104); LIPASE 37 U/L (11-82); MAGNESIUM 1.3 mg/dL (1.7-2.3); POTASSIUM 3.7 mmol/L (3.5-4.5); SODIUM 135 mmol/L (135-145); TOTAL PROTEIN 8.2 g/dL (6.4-8.9)
[2023-02-16] MEDS ORDERED: SODIUM CHLORIDE 0.9% 1,000 ML IV STA (12:46)
[2023-02-16] MEDS ORDERED: MAGNESIUM SULFATE 2 GRAM 2 GM/50 ML BAG IV ONE (12:46)
[2023-02-16 12:49] LABS: SALICYLATE < 1.5 mg/dL
[2023-02-16 12:56] LABS: THYROID STIMULATING HORMONE 1.24 uIU/mL (0.34-5.60)
[2023-02-16 14:12] VITALS: BP 144/76; O2SAT 96
[2023-02-16 14:13] LABS: MUDS CUTOFF CONCENTRATIONS CUTOFF CONC BELOW:
[2023-02-16 14:22] LABS: BILIRUBIN,URINE NEGATIVE (NEGATIVE); GLUCOSE, URINE (UA) NEGATIVE (NEGATIVE); KETONES,URINE (UA) TRACE mg/dL (NEGATIVE); LEUKOCYTE ESTERASE, URINE NEGATIVE (NEGATIVE); NITRITE,URINE NEGATIVE (NEGATIVE); OCCULT BLOOD,URINE NEGATIVE (NEGATIVE); PH,URINE 6.5 PH (5.0-7.5); PROTEIN,URINE NEGATIVE (NEGATIVE); UROBILINOGEN,URINE 0.2 (NORMAL) E.U./dL (NORMAL)
[2023-02-16 14:24] LABS: CLARITY,URINE CLEAR (CLEAR)
[2023-02-16 14:31] LABS: AMPHETAMINE SCREEN,URINE NEGATIVE (NEGATIVE); COCAINE SCREEN URINE NEGATIVE (NEGATIVE); METHAMPHETAMINES SCREEN, URINE NEGATIVE (NEGATIVE); OPIATE SCREEN, URINE NEGATIVE (NEGATIVE); THC CANNABINOID SCREEN, URINE NEGATIVE (NEGATIVE)
[2023-02-16 14:32] LABS: BARBITURATE SCREEN,UR NEGATIVE (NEGATIVE); BENZODIAZEPINES SCREEN, URINE NEGATIVE (NEGATIVE); METHADONE SCREEN, URINE NEGATIVE (NEGATIVE); OXYCODONE SCREEN, URINE NEGATIVE (NEGATIVE); PROPOXYPHENE SCREEN, URINE NEGATIVE (NEGATIVE); TRICYCLIC ANTIDEPRESSANT,URINE NEGATIVE (NEGATIVE)
== END 2023-02-16 14:26 | disposition home or self-care (01) ==
LOC: ED 11:42
DX: F10.930 Alcohol use, unspecified with withdrawal, uncomplicated (principal); Y90.0 Blood alcohol level of less than 20 mg/100 ml; Z79.899 Other long term (current) drug therapy
CPT/HCPCS: 36415; 80053; 80306; 80307; 80320; 80329; 81001; 81003; 82550; 83690; 83735; 84443; 85025; 87086; 96365; 99283

== ENCOUNTER 2023-06-17 18:01 | Emergency (ER) | payer OTHER ==
[2023-06-17 18:39] LABS: BASOPHILS # (AUTO) 0.1 10^3/uL (0.0-0.1); BASOPHILS % (AUTO) 1.2 %; EOSINOPHILS # (AUTO) 0.1 10^3/uL (0.0-0.7); EOSINOPHILS % (AUTO) 1.9 %; HCT - HEMATOCRIT 44.1 % (42.0-52.0); HGB - HEMOGLOBIN 14.6 g/dL (14.0-18.0); LYMPHOCYTES # (AUTO) 1.6 10^3/uL (1.5-3.5); LYMPHOCYTES % (AUTO) 37.8 %; MEAN CORPUSCULAR HEMOGLOBIN 29.7 pg (27.0-31.0); MEAN CORPUSCULAR HGB CONC 33.1 g/dL (32.0-36.0); MEAN CORPUSCULAR VOLUME 89.8 fL (80.0-94.0); MEAN PLATELET VOLUME 9.4 fL (7.4-11.4); MONOCYTES # (AUTO) 0.4 10^3/uL (0.0-1.0); MONOCYTES % (AUTO) 8.1 %; NEUTROPHILS # (AUTO) 2.2 10^3/uL (1.5-6.6); NEUTROPHILS % (AUTO) 50.5 %; PLT - PLATELET COUNT 312 10^3/uL (130-450); RED BLOOD COUNT 4.91 10^6/uL (4.70-6.10); RED CELL DISTRIBUTION WIDTH 13.9 % (12.0-15.0); WHITE BLOOD COUNT 4.3 x10^3/uL (4.8-10.8)
[2023-06-17] MEDS: NICOTINE 14 MG PATCH TOP STA (18:46)
[2023-06-17 18:53] LABS: ACETAMINOPHEN 0.5 ug/mL; ALBUMIN 4.5 g/dL (3.2-5.5); ALBUMIN/GLOBULIN RATIO 1.5 (1.0-2.2); ALKALINE PHOSPHATASE 55 IU/L (42-121); ALT ALANINE AMINOTRANSFERASE 35 IU/L (10-60); AST ASPARTATE AMINOTRANSFERASE 31 IU/L (10-42); BILIRUBIN,TOTAL 0.4 mg/dL (0.2-1.0); BUN - BLOOD UREA NITROGEN 10 mg/dL (6-20); CALCIUM 8.8 mg/dL (8.5-10.3); CARBON DIOXIDE - CO2 31 mmol/L (21-32); CHLORIDE 108 mmol/L (101-111); CK- CREATINE KINASE 93 IU/L (30-223); CREATININE 0.7 mg/dL (0.6-1.3); ETOH - ETHANOL 370.2 mg/dL; GFR - MDRD 125 (>89); GLUCOSE 90 mg/dL (74-104); LIPASE 44 U/L (11-82); MAGNESIUM 1.9 mg/dL (1.7-2.3); POTASSIUM 3.8 mmol/L (3.5-4.5); SODIUM 145 mmol/L (135-145); TOTAL PROTEIN 7.5 g/dL (6.4-8.9)
[2023-06-17 18:57] LABS: SALICYLATE < 1.5 mg/dL
--- NOTE | 2023-06-17 19:02 | ED Physician Documentation ---
PD HPI MHE - Stated complaint Stated Complaint: SI - Chief complaint Chief Complaint: MHE - History obtained from History obtained from: Patient - Additional information Additional information: Patient is a 38-year-old male with a reported history of PTSD, anxiety, depression and alcohol abuse presenting for evaluation of worsening suicidal thoughts. Patient states that these have been ongoing for months but recently worsening. He was in a residential treatment program in the fall for 52 days for alcohol treatment. However he states that he did not feel his anxiety and depression were addressed and started drinking again around June 08. Per his spouse who is at the bedside he drinks approximately fifth a day. He has been having thoughts of hanging himself.He has not tried to hurt himself. He denies access to firearms. His is concerned about his safety and does not feel that she can leave him alone. She states that he withdrew money from an account and stated that he felt the people would be better off if he was gone. He is in the process of getting medically from the . 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 He does not take any medications regularly. He denies drug abuse.He does go to counseling twice a week and a group session at the [employer]. Review of Systems Constitutional: denies: Fever Cardiac: denies: Chest pain / pressure Respiratory: denies: Dyspnea GI: denies: Abdominal Pain Psychiatric: reports: Depressed, Suicidal PD PAST MEDICAL HISTORY - Past Medical History Past Medical History: Yes Psych: Depression, Anxiety, Post traumatic stress disorder - Past Surgical History Past Surgical History: No - Present Medications Home Medications: Ambulatory Orders Medication Instructions Recorded Confirmed Lisinopril [Zestril] 20 mg PO DAILY 11/06/22 06/17/23 Fluoxetine HCl [Prozac] 40 mg PO DAILY 06/17/23 06/17/23 Prazosin [Minipress] 1 mg PO QPM 06/17/23 06/17/23 Propranolol [Inderal] 20 mg PO TID PRN 06/17/23 06/17/23 buPROPion HCL [Bupropion Xl] 300 mg PO DAILY 06/17/23 06/17/23 - Allergies Allergies/Adverse Reactions: Allergies Allergy/AdvReac Type Severity Reaction Status Date / Time No Known Drug Allergies Allergy Verified 06/17/23 18:10 - Social History Does the pt smoke?: No Smoking Status: Never smoker Does the pt drink ETOH?: Yes Does the pt have substance abuse?: No - Immunizations Immunizations are current?: Yes - POLST Patient has POLST: No PD ED PE NORMAL - General General: Alert and oriented X 3, No acute distress, Well developed/nourished - HEENT HEENT: Atraumatic, Moist mucous membranes, Pharynx benign - Neck Neck: Supple, no meningeal sign - Cardiac Cardiac: RRR, No murmur - Respiratory Respiratory: No respiratory distress, Clear bilaterally - Abdomen Abdomen: Soft, Non tender, Non distended - Derm Derm: Warm and dry - Neuro Neuro: Alert and oriented X 3, No motor deficit, Normal speech, Other (Normal unassisted gait) Results - Vitals Vitals: Vital Signs - 24 hr 06/17/23 18:04 Temperature 36 C L Heart Rate 80 Respiratory 20 Rate Blood Pressure 131/84 H O2 Saturation 99 Oxygen O2 Source Room air - Labs Labs: Laboratory Tests 06/17/23 06/17/23 18:33 18:33 WBC 4.3 L RBC 4.91 Hgb 14.6 Hct 44.1 MCV 89.8 MCH 29.7 MCHC 33.1 RDW 13.9 Plt Count 312 MPV 9.4 Neut # (Auto) 2.2 Lymph # (Auto) 1.6 [place] # (Auto) 0.4 Eos # (Auto) 0.1 Baso # (Auto) 0.1 Absolute Nucleated RBC 0.00 Nucleated RBC % 0.0 Sodium 145 Potassium 3.8 Chloride 108 Carbon Dioxide 31 Anion Gap 6.0 BUN 10 Creatinine 0.7 Estimated GFR (MDRD) 125 Glucose 90 Calcium 8.8 Magnesium 1.9 Total Bilirubin 0.4 AST 31 ALT 35 Alkaline Phosphatase 55 Total Creatine Kinase 93 Total Protein 7.5 Albumin 4.5 Globulin 3.0 Albumin/Globulin Ratio 1.5 Lipase 44 TSH 1.37 Salicylates < 1.5 Acetaminophen 0.5 Ethyl Alcohol 370.2 PD Medical Decision Making - ED course Complexity details: reviewed results, d/w patient, d/w family ED course: Pt with depression and anxiety with increasing suicidal thoughts and alcohol use. Voluntary for treatments. No attempts at self harm. here with him. Mental health screening labs obtained and reviewed - no significant findings other than elevated ETOH at 370. Pt is active duty and per [facility] would need to be below 100 before consideration for inpatient psychiatric treatment. Pt otherwise medically clear pending sobriety. Pt signed out to Dr. Sheridan at shift change with plans to continue to monitor patient until ETOH <100 and then to reach out to [facility] or other facilities for inpatient psychiatric treatment. Per [facility], [facility] did have bed available when contacted around 1900 tonight. Departure - Departure Clinical Impression: Suicidal ideations Forms: PCP List
[2023-06-17 19:08] LABS: THYROID STIMULATING HORMONE 1.37 uIU/mL (0.34-5.60)
[2023-06-17 20:28] LABS: BILIRUBIN,URINE NEGATIVE (NEGATIVE); GLUCOSE, URINE (UA) NEGATIVE (NEGATIVE); KETONES,URINE (UA) NEGATIVE (NEGATIVE); LEUKOCYTE ESTERASE, URINE TRACE (NEGATIVE); NITRITE,URINE NEGATIVE (NEGATIVE); OCCULT BLOOD,URINE NEGATIVE (NEGATIVE); PH,URINE 6.5 PH (5.0-7.5); PROTEIN,URINE NEGATIVE (NEGATIVE); UROBILINOGEN,URINE 0.2 (NORMAL) E.U./dL (NORMAL)
[2023-06-17 20:47] LABS: BACTERIA,URINE Rare /HPF (None Seen); CLARITY,URINE CLEAR (CLEAR); EPITHELIAL CELLS,UR RARE Renal Tubular /HPF (<= Few); RBC,URINE None Seen /HPF (0-5); SQUAMOUS EPITHELIAL CELL,UR RARE Squamous (<= Few); WBC,URINE 0-3 /HPF (0-3)
[2023-06-17 20:48] LABS: AMPHETAMINE SCREEN,URINE NEGATIVE (NEGATIVE); BARBITURATE SCREEN,UR NEGATIVE (NEGATIVE); BENZODIAZEPINES SCREEN, URINE NEGATIVE (NEGATIVE); BUPRENORPHINE SCREEN, URINE NEGATIVE (NEGATIVE); COCAINE SCREEN URINE NEGATIVE (NEGATIVE); METHADONE SCREEN, URINE NEGATIVE (NEGATIVE); METHAMPHETAMINES SCREEN, URINE NEGATIVE (NEGATIVE); OPIATE SCREEN, URINE NEGATIVE (NEGATIVE); OXYCODONE SCREEN, URINE NEGATIVE (NEGATIVE); THC CANNABINOID SCREEN, URINE NEGATIVE (NEGATIVE); TRICYCLIC ANTIDEPRESSANT,URINE NEGATIVE (NEGATIVE)
--- NOTE | 2023-06-18 07:00 | ED Physician Documentation ---
ED Addendum - Addendum Addendum: 06/18/23 06:59 No acute events overnight. There is a bed available at [facility] and patient's alcohol level just came back at less than 10. Therefore he can now be admitted. Impression 1 depression 2 suicidal ideation 3 alcohol abuse Condition stable Disposition transfer to inpatient psychiatric care at [facility]
[2023-06-18] MEDS: ONDANSETRON ODT 4 MG TABLET TL STA (08:23)
[2023-06-18] MEDS: LORazepam 1 MG TABLET PO STA (08:23)
[2023-06-18 10:53] VITALS: BP 142/83; O2SAT 100
== END 2023-06-18 11:05 ==
LOC: ED 18:01
DX: R45.851 Suicidal ideations (principal); F32.A Depression, unspecified; F41.9 Anxiety disorder, unspecified; F10.10 Alcohol abuse, uncomplicated; Y90.8 Blood alcohol level of 240 mg/100 ml or more
CPT/HCPCS: 36415; 80053; 80306; 80307; 80320; 80329; 81001; 82550; 83690; 83735; 84443; 85025; 87086; 87635; 99284; 99285; A9270; J8499; Q0162; 81003

== ENCOUNTER 2023-08-25 00:23 | Outpatient (CLI) | payer OTHER | END 2023-08-25 23:59 | disposition critical access hospital (66) | LOC: EMS 00:23 | DX: T39.312A Poisoning by propionic acid derivatives, intentional self-harm, initial encounter (principal); Y92.008 Other place in unspecified non-institutional (private) residence as the place of occurrence of the external cause | CPT/HCPCS: A0425; A0429 ==

== ENCOUNTER 2023-08-25 00:36 | Emergency (ER) | payer OTHER ==
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
[2023-08-25] MEDS: CHARCOAL ACTIVATED 25 GM/120 ML BOTTLE PO STA (01:20)
[2023-08-25 01:27] LABS: BASOPHILS # (AUTO) 0.1 10^3/uL (0.0-0.1); BASOPHILS % (AUTO) 0.8 %; EOSINOPHILS # (AUTO) 0.2 10^3/uL (0.0-0.7); EOSINOPHILS % (AUTO) 2.4 %; HCT - HEMATOCRIT 42.7 % (42.0-52.0); HGB - HEMOGLOBIN 14.3 g/dL (14.0-18.0); LYMPHOCYTES # (AUTO) 1.9 10^3/uL (1.5-3.5); LYMPHOCYTES % (AUTO) 26.1 %; MEAN CORPUSCULAR HEMOGLOBIN 29.5 pg (27.0-31.0); MEAN CORPUSCULAR HGB CONC 33.5 g/dL (32.0-36.0); MEAN PLATELET VOLUME 9.9 fL (7.4-11.4); MONOCYTES # (AUTO) 0.4 10^3/uL (0.0-1.0); NEUTROPHILS # (AUTO) 4.6 10^3/uL (1.5-6.6); NEUTROPHILS % (AUTO) 64.4 %; PLT - PLATELET COUNT 345 10^3/uL (130-450); RED BLOOD COUNT 4.85 10^6/uL (4.70-6.10); RED CELL DISTRIBUTION WIDTH 13.2 % (12.0-15.0); WHITE BLOOD COUNT 7.1 x10^3/uL (4.8-10.8)
[2023-08-25 01:49] LABS: ACETAMINOPHEN 0.2 ug/mL; ALBUMIN 4.2 g/dL (3.2-5.5); ALBUMIN/GLOBULIN RATIO 1.5 (1.0-2.2); ALKALINE PHOSPHATASE 57 IU/L (42-121); ALT ALANINE AMINOTRANSFERASE 23 IU/L (10-60); AST ASPARTATE AMINOTRANSFERASE 25 IU/L (10-42); BILIRUBIN,TOTAL 0.3 mg/dL (0.2-1.0); BUN - BLOOD UREA NITROGEN 20 mg/dL (6-20); CALCIUM 8.6 mg/dL (8.5-10.3); CARBON DIOXIDE - CO2 19 mmol/L (21-32); CHLORIDE 109 mmol/L (101-111); CREATININE 0.9 mg/dL (0.6-1.3); ETOH - ETHANOL 275.6 mg/dL; GFR - MDRD 93 (>89); GLUCOSE 92 mg/dL (74-104); LIPASE 50 U/L (11-82); POTASSIUM 3.6 mmol/L (3.5-4.5); SODIUM 142 mmol/L (135-145)
[2023-08-25 01:50] LABS: SALICYLATE < 1.5 mg/dL
[2023-08-25 02:55] LABS: AMPHETAMINE SCREEN,URINE NEGATIVE (NEGATIVE); BARBITURATE SCREEN,UR NEGATIVE (NEGATIVE); BENZODIAZEPINES SCREEN, URINE NEGATIVE (NEGATIVE); BUPRENORPHINE SCREEN, URINE NEGATIVE (NEGATIVE); COCAINE SCREEN URINE NEGATIVE (NEGATIVE); METHADONE SCREEN, URINE NEGATIVE (NEGATIVE); METHAMPHETAMINES SCREEN, URINE NEGATIVE (NEGATIVE); OPIATE SCREEN, URINE NEGATIVE (NEGATIVE); OXYCODONE SCREEN, URINE NEGATIVE (NEGATIVE); THC CANNABINOID SCREEN, URINE NEGATIVE (NEGATIVE); TRICYCLIC ANTIDEPRESSANT,URINE NEGATIVE (NEGATIVE)
[2023-08-25 09:10] LABS: CALCIUM 8.7 mg/dL (8.5-10.3); CREATININE 0.9 mg/dL (0.6-1.3); ETOH - ETHANOL 146.9 mg/dL; POTASSIUM 4.4 mmol/L (3.5-4.5)
--- NOTE | 2023-08-25 13:14 | ED Physician Documentation ---
ED Addendum - Addendum Addendum: Patient endorsed to me at change of shift awaiting sobriety. On repeat examination the patient is clinically sober. Blood alcohol is repeated and is less than 100 from the ingestion standpoint. , we repeated a BMP and it is stable and he is considered medically cleared for evaluation for behavioral health reasons. Clinical impression: Ibuprofen overdose, suicide attempt plan: Medically cleared here for behavioral health placement. 08/25/23 13:12
--- NOTE | 2023-08-25 14:42 | ED Physician Documentation ---
ED Addendum - Addendum Addendum: Patient endorsed to me by the overnight physician at 0700. At time of my first evaluation the patient was still mildly intoxicated initially however he cleared and his blood alcohol level eventually get down below 100. He and his were updated as to the plan- he is voluntary and seeking inpatient tx at [facility] as he has before. Regarging his overdose: We repeated a BMP to exclude any injury due to his intentional ibuprofen overdose and this was again negative. Reviewing his chart reveals negative aspirin and APAP levels. Unremarkable chemistry negative tox screen Blood tests positive only for alcohol He was seen and evaluated by our ED medical dermatologist. He has previously been admitted for psychiatric care at [facility] and they were contacted. I spoke with Dr. Marc, the psychiatrist at [facility], and he was accepted onto his service on 5 N. Clinical impression: Suicide attempt, intentional ibuprofen ingestion Plan: Transfer to [facility] [address] service of Dr. Marc. 08/25/23 14:39
[2023-08-25 15:44] VITALS: BP 132/88; O2SAT 99
[2023-08-25] MEDS: LORazepam 1 MG TABLET PO STA (15:47)
--- NOTE | 2023-08-25 16:44 | PHARMACY PROGRESS NOTE ---
- Best Possible Medication History Admit Date and Time: Processed by: Nursing Medications reviewed in ED?: Yes Medication History completed: Yes Patient Interview: Completed (FLUOXETINE, LISINOPRIL, PROPRANOLOL, PRAZOSIN LAST FILLED 05/22/23 FOR 30DS.) As the person ultimately responsible for medication therapy, providers are able to order a medication from an existing home medication list in [facility] via the "Reconcile Routine" prior to Confirmation of that medication by learning support aide. Such practice is discouraged except when the physician, in their clinical judgment, deems that a medical need exists for a medication without regard to p revious use.
== END 2023-08-25 19:54 ==
LOC: EDUNIT# → ED 00:36
DX: T39.312A Poisoning by propionic acid derivatives, intentional self-harm, initial encounter (principal); F10.129 Alcohol abuse with intoxication, unspecified; Y90.8 Blood alcohol level of 240 mg/100 ml or more; F32.A Depression, unspecified; F41.9 Anxiety disorder, unspecified; F43.10 Post-traumatic stress disorder, unspecified; Z79.899 Other long term (current) drug therapy
CPT/HCPCS: 36415; 80048; 80053; 80143; 80179; 80306; 82077; 83690; 85025; 87635; 99285; A9270; J8499